=== PATIENT | female | born 1940 | race Caucasian/White ===

== ENCOUNTER 2022-09-12 09:21 | Outpatient (CLI) | payer MEDICARE, SELFPAY ==
--- NOTE | 2022-09-12 09:45 | CRLHL7_ITS ---
For Patients: As a result of the Cures Act, medical imaging exams and procedure reports are released immediately into your electronic medical record. You may view this report before your referring provider. If you have questions, please contact your health care provider. DIGITAL DIAGNOSTIC LEFT MAMMOGRAM USING TOMOSYNTHESIS AND COMPUTER-AIDED DETECTION LEFT BREAST ULTRASOUND CLINICAL HISTORY: LEFT breast mass/asymmetry. COMPARISON: 09/06/2022. TECHNIQUE: Digital LEFT mammogram in three projections. Tomosynthesis and CAD utilized. Real-time ultrasound imaging of LEFT breast with imaging documentation. BREAST COMPOSITION: There are areas of scattered fibroglandular density. FINDINGS: 3D spot compression MLO, 3D true lateral and 3D XCCL LEFT breast mammogram images submitted. There is a spiculated mass within the LEFT breast posterior depth, upper outer quadrant 6 cm from the nipple adjacent to vascular calcifications. This mass is difficult to visualize due to its posterior position on routine CC images. Targeted LEFT breast ultrasound performed at 2 o`clock 6 cm from the nipple. In this location there is a solid hypoechoic taller than wide mass measuring 1.3 x 1.5 x 1.0 cm. IMPRESSION: Suspicious mass LEFT breast 2 o`clock 6 cm from the nipple measuring 1.5 cm. RECOMMENDATIONS: Ultrasound-guided core needle biopsy. Results and recommendations discussed with the patient. BI-RADS Category 4: Suspicious A lay language report of this examination will be provided to the patient. Dictated by Kwame Cheng MD @ 09/12/2022 11:08:10 AM /Dictated by: Kwame Cheng MD @ 09/12/2022 11:08:00 AM (Electronically Signed)
--- NOTE | 2022-09-12 10:15 | CRLHL7_ITS ---
For Patients: As a result of the Cures Act, medical imaging exams and procedure reports are released immediately into your electronic medical record. You may view this report before your referring provider. If you have questions, please contact your health care provider. PLEASE SEE DIGITAL DIAGNOSTIC LEFT MAMMOGRAM PERFORMED SAME DAY CRL:jovanna nugent/Dictated by: Kwame Cheng MD @ 09/12/2022 11:08:00 AM (Electronically Signed)
--- NOTE | 2022-11-28 13:47 | ONC.NURNOTE ---
Spoke with Mayra with Dr. Scott Alcazar, [facility] regarding surgery planning. Pt ok'd to have breast surgery 1) at least 10 days from today and 2) when ANC >0.5. Dr. Alcazar anticipates a quick rebound of blood counts and is happy to speak directly with Dr. Flores. Msg sent to Dr. Flores with office contact info: [phone], option #2. Labs drawn 11/21/22 WBC 1.1, ANC 0.07. Pt scheduled for BM BX 11/29 and Heme Onc f/u 12/04. 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 Pt will need to continue care at [facility] for the time being; they will notify us when pt able to follow care locally.
== END 2022-09-12 09:22 | disposition home or self-care (01) ==
LOC: MAMMO 09:22
PROVIDERS: PCP Family Medicine; Visit Provider Family Medicine
DX: N63.20 Unspecified lump in the left breast, unspecified quadrant (principal); R92.8 Other abnormal and inconclusive findings on diagnostic imaging of breast
CPT/HCPCS: 76642; 77065; G0279

== ENCOUNTER 2022-09-19 07:59 | Outpatient (CLI) | payer MEDICARE, SELFPAY ==
--- NOTE | 2022-09-19 08:15 | CRLHL7_ITS ---
For Patients: As a result of the Century Cures Act, medical imaging exams and procedure reports are released immediately into your electronic medical record. You may view this report before your referring provider. If you have questions, please contact your health care provider. ULTRASOUND-GUIDED LEFT BIOPSY WITH CLIP PLACEMENT INDICATION: 82-year-old female. LEFT upper outer quadrant breast mass. Biopsy for diagnostic purposes. Informed consent was obtained. Benefits and risks were discussed. The patient agreed to proceed. [place] protocol was followed. TIME-OUT conducted just prior to starting procedure confirmed patient identity, site/side, procedure, patient position, and availability of correct equipment. Pause for cause was performed. Utilizing sterile technique and 1 percent lidocaine for local anesthetic, a 14-gauge biopsy gun was advanced into the loop small lesion at the 2 o`clock position 6 cm from the LEFT nipple. Six passes were obtained. A small clip was placed. No immediate complications. A postprocedure mammogram is pending. IMPRESSION: Technically successful ultrasound-guided LEFT breast biopsy. No immediate complications. 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 The pathology report is concordant with the imaging findings. Dictated by Hammad Verdin MD @ Sep 19 2022 9:20AM Signed by:?Hammad Verdin MD @09/19/2022 11:16:55 AM (Electronically Signed)
--- NOTE | 2022-09-19 09:00 | CRLHL7_ITS ---
For Patients: As a result of the Century Cures Act, medical imaging exams and procedure reports are released immediately into your electronic medical record. You may view this report before your referring provider. If you have questions, please contact your health care provider. POST-BIOPSY LEFT MAMMOGRAM FOR CLIP PLACEMENT INDICATION: 82-year-old female. Status post LEFT ultrasound-guided breast biopsy. Clip placement. Follow-up. TECHNIQUE: Lateral LEFT breast mammogram performed utilizing exaggerated CC view laterally, a conventional CC view, and a true ML view. FINDINGS: Breast Composition: There are areas of scattered fibroglandular density. Within the upper outer LEFT breast at the 2 o`clock position is a small mass with a biopsy clip perfectly position. Vascular calcifications in the LEFT breast. A few benign punctate calcifications. IMPRESSION: Post mammogram clip placement. Adequate placement of the clip. ACR not applicable Dictated by: Hammad Verdin MD @09/19/2022 9:17:33 AM jj/Dictated by: Hammad Verdin MD @ 09/19/2022 9:17:00 AM (Electronically Signed)
== END 2022-09-19 08:00 | disposition home or self-care (01) ==
LOC: US 07:59
PROVIDERS: PCP Family Medicine; Visit Provider Family Medicine
DX: N63.20 Unspecified lump in the left breast, unspecified quadrant (principal); R92.8 Other abnormal and inconclusive findings on diagnostic imaging of breast
CPT/HCPCS: 19083; 77065; 88305; 88360; 88361; A4648; A4649

== ENCOUNTER 2022-10-06 10:43 | Emergency (ER) | payer MEDICARE, SELFPAY ==
[2022-10-06 10:58] VITALS: BP 175/78; PULSE 76; RESP 16; TEMP 36.8; O2SAT 98; BMI 30.7
--- NOTE | 2022-10-06 11:12 | CRLHL7_ITS ---
For Patients: As a result of the Century Cures Act, medical imaging exams and procedure reports are released immediately into your electronic medical record. You may view this report before your referring provider. If you have questions, please contact your health care provider. INDICATION: Pain and swelling both lower extremities TECHNIQUE: A compression venous ultrasound exam was performed of both lower extremities using umanzor scale imaging, color Doppler and spectral Doppler analysis. FINDINGS: Sonographic imaging of the lower extremities demonstrates normal compressibility and color Doppler venous blood flow within the common femoral, deep femoral, and proximal greater saphenous veins. Within the thighs the femoral veins are patent and compressible. At a lower level the popliteal and posterior tibial veins also show normal compressibility and color Doppler venous blood flow. IMPRESSION: Normal venous ultrasound exam. No evidence of deep vein thrombosis within either the left or right lower extremity. Dictated by Ashish Garcia MD @ 10/06/2022 1:55:50 PM (Electronically Signed)
--- NOTE | 2022-10-06 11:13 | ED_ITS ---
HPI - General Adult General Chief complaint: Extremity Pain/Injury, Lower Stated complaint: right leg possible clot Time Seen by Provider: 10/06/22 11:03 History of Present Illness HPI narrative: This 82-year-old female was called by urgent care because of an elevated D- dimer. The D-dimer it done at urgent care returned at 2300 with a reference range for normal at 100-500. The patient states that she has had some swelling and redness in this leg for the past couple weeks. She went to an urgent care toward the beginning of these symptoms and received a prescription for a steroid and a diagnosis of reactions from bug bites. She did not have any improvement of her symptoms and went to urgent care last night again. She was diagnosed with a cellulitis and has started Keflex. D-dimer results came back after she left and she was called this morning and instructed to come in here for further evaluation. She does not report any chest pain or shortness of breath. 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 She is taking a full-strength aspirin daily. She does have a new diagnosis of breast cancer. Related Data Home Medications Medication Instructions Recorded Confirmed aspirin 325 mg tablet 325 mg PO BID 10/05/22 10/05/22 Previous Rx's Medication Instructions Recorded cephalexin 500 mg tablet 500 mg PO TID 7 days #21 tabs 10/05/22 Allergies Allergy/AdvReac Type Severity Reaction Status Date / Time No Known Drug Allergies Allergy Verified 10/05/22 18:20 Review of Systems Status of ROS: Reports: 10 or more systems reviewed and unremarkable except as noted in History and below Narrative: Constitutional: Well-developed, well-nourished, no acute distress. HEENT: Normocephalic, atraumatic. Neck: Normal range of motion. Nontender. Supple. Heart: Regular. No murmurs. Normal rate. Intact distal pulses. Lungs: Clear to auscultation. No chest discomfort. No wheezes, rhonchi, or rales. Abdomen: Normal bowel sounds. Nontender. No rebound tenderness. Genitalia: Deferred. Back: No midline tenderness. Normal range of motion. Extremities: Normal range of motion. Skin: Intact. No rash. Warm. No erythema or pallor. Neurologic: No altered sensation. No weakness. Alert and oriented. Psychiatric: No suicidality. No anxiety or depression. No insomnia. Nursing notes and vitals signs are reviewed. [facility] Medical History (Updated 10/06/22 @ 15:[address] MD) Cellulitis of lower leg ?L03.119 - Cellulitis of unspecified part of limb (ICD-10) CVA (cerebral vascular accident) ?I63.9 - Cerebral infarction, unspecified (ICD-10) Allergic reaction ?T78.40XA - Allergy, unspecified, initial encounter (ICD-10) Surgical History (Updated 09/26/22 @ 12:45 by Fela Flores MD) S/P carotid endarterectomy ?Z98.890 - Other specified postprocedural states (ICD-10) Family History (Updated 09/26/22 @ 12:45 by Fela Flores MD) Other Ovarian cancer Social History (Updated 09/26/22 @ 12:46 by Fela Flores MD) Narrative: She does not smoke or drink alcohol. She lives independently. Smoking Status: Never smoker Exam Narrative: Exam Narrative: Constitutional: Well-developed, well-nourished, no acute distress. HEENT: Normocephalic, atraumatic. Neck: Normal range of motion. Nontender. Supple. Heart: Regular. No murmurs. Normal rate. Intact distal pulses. Lungs: Clear to auscultation. No chest discomfort. No wheezes, rhonchi, or rales. Abdomen: Normal bowel sounds. Nontender. No rebound tenderness. Genitalia: Deferred. Back: No midline tenderness. Normal range of motion. Extremities: Normal range of motion. No injury. Right leg has erythema and swelling on the anterior aspect involving the distal portion of the lower extremity from the ankle about care home to the knee. She does not report any pain in her calf or upper leg. Skin: Intact. No rash. Warm. No erythema or pallor. Neurologic: No altered sensation. No weakness. Alert and oriented. Psychiatric: No suicidality. No anxiety or depression. No insomnia. Nursing notes and vitals signs are reviewed. Const: Vital Signs, click to edit/add: Vital Signs - 24 hr 10/06/22 10:58 10/06/22 13:15 10/06/22 15:23 Temperature 98.3 F Pulse Rate [Pulse Oximeter] 76 67 70 Respiratory Rate 16 Blood Pressure [Ri ght Upper Arm] 175/78 H 166/84 H 176/82 H Pulse Oximetry 98 96 96 Oxygen Delivery Me thod Room Air Room Air Room Air Course Vital Signs Vital signs: Initial Vital Signs Temperature 98.3 F 10/06/22 10:58 Temperature Source Temporal Artery Scan 10/06/22 10:58 Pulse Rate 76 10/06/22 10:58 Respiratory Rate 16 10/06/22 10:58 Blood Pressure 175/78 H 10/06/22 10:58 Blood Pressure Mean 110 H 10/06/22 10:58 Blood Pressure Position Sitting 10/06/22 10:58 Pulse Oximetry 98 10/06/22 10:58 Oxygen Delivery Method Room Air 10/06/22 10:58 Vital Signs Temperature 98.3 F 10/06/22 10:58 Pulse Rate 76 10/06/22 10:58 Respiratory Rate 16 10/06/22 10:58 Blood Pressure 175/78 H 10/06/22 10:58 Pulse Oximetry 98 10/06/22 10:58 Oxygen Delivery Method Room Air 10/06/22 10:58 Temperature 98.3 F 10/06/22 10:58 Pulse Rate 70 10/06/22 15:23 Respiratory Rate 16 10/06/22 10:58 Blood Pressure 176/82 H 10/06/22 15:23 Pulse Oximetry 96 10/06/22 15:23 Oxygen Delivery Method Room Air 10/06/22 15:23 Medical Decision Making MDM Narrative Medical decision making narrative: This patient comes in with swelling in her right lower extremity and a lab results from urgent care last night showed elevated D-dimer. An IV was established here and labs are drawn again which returned with D-dimer at 2.1. Ultrasound of the lower extremities show no sign of deep venous thrombosis bilaterally. The patient's PERC rule however does not rule out pulmonary embolism. Her age, previous stroke history, and recent diagnosis of breast cancer puts her at risk for an embolic event. The patient then had a CT scan of her chest with IV contrast. There is no evidence of pulmonary embolism. The patient is okay to return home and encouraged to continue her antibiotic treatment as prescribed. She is taking a full strength aspirin and will continue this also. Lab Data Labs: Lab Results 10/06/22 Range/Units 11:30 WBC 2.77 L (4.50-11.00) K/uL RBC 3.81 L (4.00-5.20) m/uL Hgb 12.2 (12.0-16.0) gm/dL Hct 37.5 (33.0-51.0) % MCV 98 (80-100) fL MCH 32 (26-34) pg MCHC 33 (32-36) gm/dL RDW Coeff of Demond 14.9 (11.5-15.5) % Plt Count 154 (140-440) K/uL Neut % (Auto) 11.1 L (42.0-72.0) % Lymph % (Auto) 48.4 H (20-44) % Morgan % (Auto) 39.7 H (0.0-11.0) % Eos % (Auto) 0.4 (0.0-7.0) % Baso % (Auto) 0.4 (0.0-3.0) % Neut # (Auto) 0.30 L (1.7-7.0) K/uL Lymph # (Auto) 1.30 (0.90-2.90) K/uL Morgan # (Auto) 1.10 H (0.00-0.90) K/UL Eos # (Auto) 0.00 (0.00-0.50) K/uL Baso # (Auto) 0.00 (0.00-0.30) K/uL Abs Immat Gran (auto) 0.00 (0.00-0.30) K/uL Imm/Tot Granulo (auto) 0.0 % D-Dimer Quant (PE/DVT) 2.14 H (0.00-0.50) ug/ml Sodium 139 (135-149) mmol/L Potassium 3.6 (3.6-5.1) mmol/L Chloride 104 (96-114) mmol/L Carbon Dioxide 29 (20-32) mmol/L BUN 10 (7-30) mg/dL Creatinine 0.8 (0.5-1.5) mg/dL Estimated Creat Clear 41.30 Estimated GFR 74 ml/min Glucose 93 (60-115) mg/dL Calcium 8.4 (8.4-10.6) mg/dL Imaging Data Venous US: Radiologist's impression: Normal venous ultrasound exam. No evidence of deep vein thrombosis within either the left or right lower extremity. CT scan - chest: Radiologist's impression: 1. No acute pulmonary embolism to the level of the subsegmental pulmonary arteries. 2. No acute pathology in the chest. 3. Coronary vessel calcifications. 4. Partially visualized cholelithiasis. Discharge Plan Discharge Clinical Impression: Cellulitis, D-dimer, elevated Patient Disposition: Home, Self-Care Condition: Stable Additional Instructions: Continue antibiotic as prescribed. Follow up with MD or return if worsening symptoms happen. Prescriptions: No Action aspirin 325 mg tablet 325 mg PO BID cephalexin 500 mg tablet 500 mg PO TID 7 Days Qty: 21 0RF Follow Up/Referrals: Jeffrey Dempsey MD [Primary Care Provider] - Stand Alone Forms: [employer] Info Instructions
[2022-10-06 11:47] LABS: Basophils Percent Auto 0.4 % (0.0-3.0); Eosinophils Percent Auto 0.4 % (0.0-7.0); Hematocrit 37.5 % (33.0-51.0); Hemoglobin* 12.2 gm/dL (12.0-16.0); Lymphocytes Percent Auto 48.4 % (20-44); Mean Corpuscular HGB Conc 33 gm/dL (32-36); Mean Corpuscular Hemoglobin 32 pg (26-34); Mean Corpuscular Volume 98 fL (80-100); Monocytes Percent Auto 39.7 % (0.0-11.0); Neutrophils Percent Auto 11.1 % (42.0-72.0); Platelet Count* 154 K/uL (140-440); RDW Coefficient of Variation % 14.9 % (11.5-15.5); Red Blood Count 3.81 m/uL (4.00-5.20); White Blood Count* 2.77 K/uL (4.50-11.00)
[2022-10-06 11:57] LABS: Slide Review Reflex No
[2022-10-06 11:59] LABS: Chloride* 104 mmol/L (96-114); Potassium* 3.6 mmol/L (3.6-5.1); Sodium* 139 mmol/L (135-149)
[2022-10-06 12:02] LABS: Blood Urea Nitrogen* 10 mg/dL (7-30); Calcium* 8.4 mg/dL (8.4-10.6); Carbon Dioxide* 29 mmol/L (20-32); Creatinine* 0.8 mg/dL (0.5-1.5); Estimated Glomerular Filt Rate 74 ml/min; Glucose* 93 mg/dL (60-115)
[2022-10-06 12:05] LABS: D Dimer Quantitative* 2.14 ug/ml (0.00-0.50)
[2022-10-06 13:15] VITALS: BP 166/84; PULSE 67; O2SAT 96
--- NOTE | 2022-10-06 14:04 | CRLHL7_ITS ---
For Patients: As a result of the Century Cures Act, medical imaging exams and procedure reports are released immediately into your electronic medical record. You may view this report before your referring provider. If you have questions, please contact your health care provider. Indication: Elevated D-dimer Comparison: None available. Technique: The following the uncomplicated administration of 95 mL Isovue 370. This study was performed with IV administration of iodinated contrast material, which was deemed necessary given the patient`s indication for the examination. Findings: Vascular Findings: -enhancement of the pulmonary artery is adequate. No acute pulmonary embolism to the level of the subsegmental pulmonary arteries. - no thoracic aortic dissection or aneurysm. The ascending and descending aorta measures 3.9 and 2.6 cm, respectively, at the level of the main pulmonary artery, and 2.3 cm at the diaphragmatic hiatus. There are mild aortic atherosclerotic calcifications. - Normal three-vessel takeoff from a normal appearing aortic arch. Caliber of the main pulmonary artery is normal. Non-Vascular Findings: Thyroid: Normal thyroid. Mediastinum: Normal esophagus. Patent central airways. Lymph nodes: No paratracheal, mediastinal, hilar or axillary adenopathy. Lungs: No suspicious pulmonary nodules or consolidation. Pleura: No pleural effusion or pneumothorax. Heart: Normal heart size. No pericardial effusion. Mitral valve annular calcifications. Coronary vessel calcifications. Chest Wall: Upper Abdomen: Limited images of the upper abdomen demonstrate no acute findings. Partially visualized cholelithiasis. Calcification of the abdominal aorta and splenic artery. Bones: No acute fractures. No aggressive appearing lytic or blastic osseous lesions. Mild multilevel degenerative changes of the spine. Impression: 1. No acute pulmonary embolism to the level of the subsegmental pulmonary arteries. 2. No acute pathology in the chest. 3. Coronary vessel calcifications. 4. Partially visualized cholelithiasis. Please note that all CT scans at this facility use dose modulation, iterative reconstruction, and/or weight-based dosing when appropriate to reduce radiation dose to as low as reasonably achievable. Dictated by Hugo Foreman MD @ 10/06/2022 3:36:10 PM (Electronically Signed)
[2022-10-06 15:23] VITALS: BP 176/82; PULSE 70; O2SAT 96
== END 2022-10-06 15:55 | disposition home or self-care (01) ==
PROVIDERS: Emergency Provider Emergency Medicine Emergency Medical Services; PCP Family Medicine
DX: L03.115 Cellulitis of right lower limb (principal); R79.89 Other specified abnormal findings of blood chemistry
CPT/HCPCS: 36415; 71260; 80048; 85025; 85379; 93970; 99284; Q9967

== ENCOUNTER 2022-10-08 16:55 | Outpatient (CLI) | payer MEDICARE, SELFPAY ==
[2022-10-08 22:40] LABS: Reticulocyte Hemoglobin Equivi 33.7 pg (29.0-35.0); Reticulocyte Percent 1.1 % (0.5-2.0); Reticulocytes Absolute 0.04 # (0.03-0.08)
== END 2022-10-08 16:56 | disposition home or self-care (01) ==
PROVIDERS: PCP Family Medicine; Visit Provider Physician Assistant Medical
DX: R22.41 Localized swelling, mass and lump, right lower limb (principal); L03.119 Cellulitis of unspecified part of limb
CPT/HCPCS: 80076; 85045; 86617; 88184; 88185

== ENCOUNTER 2022-10-16 11:19 | Outpatient (CLI) | payer MEDICARE, SELFPAY ==
[2022-10-16 11:40] VITALS: BP 133/73; PULSE 62; RESP 16; O2SAT 99; BMI 28.7
--- NOTE | 2022-10-16 11:47 | W.ANESCHARGE ---
Anesthesia Charges Start Date/Time Anesthesia Start Date: 10/16/22 Anesthesia Start Time: 12:18 Stop Date/Time Anesthesia Stop Date: 10/16/22 Anesthesia Stop Time: 12:51 Summary Extremes of Age - Over 70 or under 1: MDA
[2022-10-16 12:13] LABS: Basophils Percent Auto 0.4 % (0.0-3.0); Hematocrit 41.4 % (33.0-51.0); Hemoglobin* 13.7 gm/dL (12.0-16.0); Immature Granulocytes Pct Auto 2.1 %; Immature Reticulocyte Fraction 21.6 % (3.0-15.9); Lymphocytes Percent Auto 59.6 % (20-44); Mean Corpuscular HGB Conc 33 gm/dL (32-36); Mean Corpuscular Hemoglobin 33 pg (26-34); Mean Corpuscular Volume 99 fL (80-100); Monocytes Percent Auto 32.6 % (0.0-11.0); Neutrophils Percent Auto 5.3 % (42.0-72.0); Platelet Count* 180 K/uL (140-440); RDW Coefficient of Variation % 15.5 % (11.5-15.5); Red Blood Count 4.19 m/uL (4.00-5.20); Reticulocyte Hemoglobin Equivi 38.8 pg (29.0-35.0); Reticulocyte Percent 1.1 % (0.5-2.0); Reticulocytes Absolute 0.05 # (0.03-0.08); White Blood Count* 2.85 K/uL (4.50-11.00)
[2022-10-16 12:50] VITALS: BP 95/45; PULSE 52; RESP 16; O2SAT 100
--- NOTE | 2022-10-16 12:55 | W.ANESCHARGE ---
Anesthesia Charges Start Date/Time Anesthesia Start Date: 10/16/22 Anesthesia Start Time: 12:18 Stop Date/Time Anesthesia Stop Date: 10/16/22 Anesthesia Stop Time: 12:51
[2022-10-16 13:02] VITALS: BP 129/86; PULSE 70; RESP 16; O2SAT 96
[2022-10-16 13:10] VITALS: BP 126/53; PULSE 53; RESP 16; O2SAT 95
[2022-10-16 14:04] LABS: Slide Review Reflex Yes
[2022-10-16 14:05] LABS: Slide Review Acceptable Review (Acceptable)
== END 2022-10-16 13:39 | disposition home or self-care (01) ==
LOC: OP CLINIC 11:20
PROVIDERS: PCP Family Medicine; Visit Provider Internal Medicine Hematology & Oncology
DX: D70.9 Neutropenia, unspecified (principal)
CPT/HCPCS: 1112; 36415; 38222; 81245; 81246; 81310; 81450; 85025; 85045; 88184; 88185; 88237; 88264; 88305; 88311; 88313; 88360; 99100; J1644; J2001; J2704

== ENCOUNTER 2023-02-11 09:54 | Outpatient (CLI) | payer MEDICARE, SELFPAY ==
--- NOTE | 2023-02-11 10:15 | CRLHL7_ITS ---
For Patients: As a result of the Century Cures Act, medical imaging exams and procedure reports are released immediately into your electronic medical record. You may view this report before your referring provider. If you have questions, please contact your health care provider. LEFT BREAST ULTRASOUND CLINICAL HISTORY: Follow-up LEFT breast mass, known breast cancer. COMPARISON: 09/12/2022. TECHNIQUE: Real-time ultrasound imaging of LEFT breast with imaging documentation. FINDINGS: Previously biopsied mass again noted upper outer quadrant LEFT breast, 2 o`clock 6 cm from the nipple. This measures 1.9 x 1.2 x 2.1 cm, previously measuring 1.5 cm. Biopsy clip noted within the mass. IMPRESSION: Mild increased size of the previously biopsy mass LEFT breast 2 o`clock 6 cm from the nipple now measuring 2.1 cm compared to 1.5 cm. RECOMMENDATIONS: Clinical follow-up. Results and recommendations were discussed with the patient at the time of the exam. BI-RADS Category 6: Known Biopsy-Proven Malignancy A lay language report of this examination will be provided to the patient. Dictated by Kwame Cheng MD @ 02/11/2023 12:45:55 PM aftab/Dictated by: Kwame Cheng MD @ 02/11/2023 12:45:00 PM (Electronically Signed)
== END 2023-02-11 09:55 | disposition home or self-care (01) ==
LOC: US 09:55
PROVIDERS: PCP Family Medicine; Visit Provider Internal Medicine
DX: C50.412 Malignant neoplasm of upper-outer quadrant of left female breast (principal)
CPT/HCPCS: 76642

== ENCOUNTER 2023-03-21 09:55 | Day surgery (SDC) | payer MEDICARE, SELFPAY ==
[2023-03-21 10:20] VITALS: BMI 28.8
[2023-03-21] MEDS: LACTATED RINGERS 1000 ML 1,000 ML 100 ML IV (10:30)
[2023-03-21] MEDS: SODIUM CHLORIDE 0.9 % (FLUSH) 10 ML SYRINGE IVF (10:30)
[2023-03-21 10:38] VITALS: BP 154/64; PULSE 61; RESP 20; TEMP 36.6; O2SAT 95
--- NOTE | 2023-03-21 11:00 | CRLHL7_ITS ---
For Patients: As a result of the Cures Act, medical imaging exams and procedure reports are released immediately into your electronic medical record. You may view this report before your referring provider. If you have questions, please contact your health care provider. LEFT BREAST SPECIMEN RADIOGRAPH, 03/21/2023 CLINICAL HISTORY: LEFT breast cancer. COMPARISON: 09/12/2022, 03/21/2023 FINDINGS: Two views of the specimen LEFT breast submitted. The specimen contains the biopsy clip, the biopsied mass and the localization wire. IMPRESSION: Specimen contains the biopsied mass, biopsy clip and localization wire. ACR not applicable. Dictated by Kwame Cheng MD @ 03/26/2023 9:00:59 AM/CRL:marium PT/Dictated by: Kwame Cheng MD @ 03/26/2023 9:01:00 AM (Electronically Signed)
--- NOTE | 2023-03-21 11:15 | CRLHL7_ITS ---
For Patients: As a result of the Century Cures Act, medical imaging exams and procedure reports are released immediately into your electronic medical record. You may view this report before your referring provider. If you have questions, please contact your health care provider. LEFT BREAST WIRE LOCALIZATION USING ULTRASOUND GUIDANCE, 03/21/2023 CLINICAL HISTORY: Malignant neoplasm of unspecified site. Pre-surgery planning. COMPARISON: Ultrasound 02/11/2023. LATERALITY: LEFT. LESION: LEFT breast 2 o???clock, 6 cm from the nipple, mass measuring 1.9 x 1.2 x 2.2 cm. TECHNIQUE: The localization wire was placed using real-time ultrasound guidance with image documentation. Cranial-caudal and medial-lateral digital mammograms were obtained after localization wire placement. CONSENT and TIME OUT: The procedure, risks, and alternatives were explained to the patient and a consent was signed. [place] Protocol was followed including pre-procedure verification that relevant information/documentation was available, reviewed and properly matched to the patient; consent accurate and complete; and equipment and supplies available. Time Out was conducted just prior to starting procedure to verify the four required elements: patient identity, correct side/site marked (if applicable), procedure, relevant images/results properly labeled and displayed (if applicable). PROCEDURE: The skin was prepped with Betadine or ChloraPrep and 10 cc of 1% lidocaine was injected for local anesthesia. The localization wire was placed within or near the targeted breast lesion using ultrasound guidance. The patient tolerated the procedure well. PROXIMITY OF WIRE TO LESION: A wire is placed through the mass and is adjacent to the clip. IMPRESSION: Successful breast wire localization. ACR not applicable Lyn Mari M.D. Diagnostic/Breast Radiologist [email or web address] Transcribed: 1:51 pm DW/Dictated by: Lyn Mari MD @ 03/21/2023 1:46:00 PM (Electronically Signed)
[2023-03-21] MEDS: CEFAZOLIN 1 GM inj IVP (11:50)
--- NOTE | 2023-03-21 12:00 | CRLHL7_ITS ---
For Patients: As a result of the Century Cures Act, medical imaging exams and procedure reports are released immediately into your electronic medical record. You may view this report before your referring provider. If you have questions, please contact your health care provider. PLEASE SEE LEFT BREAST WIRE LOCALIZATION OF SAME DAY. CRL:marium PT/Dictated by: Kwame Cheng MD @ 03/26/2023 9:00:00 AM (Electronically Signed)
--- NOTE | 2023-03-21 12:41 | W.ANESCHARGE ---
Anesthesia Charges Start Date/Time Anesthesia Start Date: 03/21/23 Anesthesia Start Time: 11:43 Stop Date/Time Anesthesia Stop Date: 03/21/23 Anesthesia Stop Time: 13:30 Summary Extremes of Age - Over 70 or under 1: MDA
[2023-03-21] MEDS: BUPIVACAINE 0.25% 30 ML INJECTION (12:45)
[2023-03-21] MEDS: LIDOCAINE 1% MDV 20 ML INJECTION (12:45)
--- NOTE | 2023-03-21 13:27 | W.ANESCHARGE ---
Anesthesia Charges Start Date/Time Anesthesia Start Date: 03/21/23 Anesthesia Start Time: 11:43 Stop Date/Time Anesthesia Stop Date: 03/21/23 Anesthesia Stop Time: 13:30
[2023-03-21 13:30] VITALS: BP 166/79; PULSE 49; RESP 20; TEMP 36.1; O2SAT 98
[2023-03-21 13:45] VITALS: BP 149/74; PULSE 50; RESP 20; O2SAT 98
--- NOTE | 2023-03-21 13:55 | PM.GSPRC ---
Operative Note Date of procedure: 03/21/23 Pre-op diagnosis: Left breast invasive ductal carcinoma, ERPR positive, HER2 negative Post-op diagnosis: Same Type of Procedure: Left breast lumpectomy with preoperative wire localization Indications: She underwent annual mammogram which showed a mass in the left breast. Biopsy showed this to be an invasive ductal carcinoma, ERPR positive, HER2 negative. Shortly after diagnosis she developed cellulitis and her laboratory values were abnormal. 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 She was admitted emergently for chemotherapy. Several discussions were had about whether not surgery for her breast cancer would be beneficial to her, and initially we had scheduled her for surgery, however it was felt that because of her prognosis from AML, that treatment with antiestrogen therapy with surveillance of the mass would be sufficient. Unfortunately on surveillance ultrasound the mass had become slightly larger. Because of this, and the fact that her AML was stable, her oncologist recommended proceeding with lumpectomy. It was felt that lymph node biopsy would not change her treatment course or overall prognosis and so this was deferred. Procedure Description: After discussing the risks and benefits of the procedure, the patient signed informed consent.? The operative site was marked and the patient was brought to the operating room and placed on the operating table in supine position.? Care was taken to pad the patient's pressure points.?? The patient was then given sedation by anesthesia.?? The operative site was then prepped and draped in the usual sterile fashion.? A time-out was then performed. An incision was made in the left breast in the upper outer quadrant directly over the approximate area of the tumor. Dissection was taken down into the subcutaneous tissue and the wire which was adjacent to the incision was grasped and pulled into view. Dissection was taken down with cautery to the chest wall below the incision around the wire. The mass was palpable. This was removed and inked for margins. Specimen x-ray showed the wire and clip within the specimen. The pathologist reviewed the specimen grossly. The tumor was close at the inferior margin as well as anterior margin. This was at the lateral aspect of the specimen. Therefore, I elected to excise a wider margin. Starting just deep to the skin, I used cautery to divide the subcutaneous fat, taking a margin of the lumpectomy cavity anteriorly as well as inferiorly until the posterior aspect was reached. This was again done at the lateral aspect of the wound cavity, where the tumor was sitting. This was inked and sent to pathology for permanent section. Of note, the new anterior and inferior margins were inked, however black ink was used for the inferior margin. The specimen was labeled as such, the pathologist was notified, and additionally a stitch was placed on the inferior margin. Anteriorly the dissection just below the incision did reach the dermal plane in approximately a 1 cm area. However it was felt to be viable. Hemostasis was achieved with cautery. Rika was placed in the wound after placing clips marking the lumpectomy cavity. The wound was then closed in layers with 3-0 Vicryl dermal and 4-0 Monocryl running subcuticular suture. Sterile dressings were then applied. ? The patient was then woken and transported to the recovery area in stable condition. ? The patient tolerated the procedure well. Findings: Left lumpectomy with wire and clip noted in the specimen on x-ray. Anterior and inferior margins were close. These were reexcised. Anesthesia: MAC Surgeon: Fela Flores MD Estimated blood loss (mL): 5 Additional Specimen Information: 1. Left lumpectomy 2. Left lumpectomy re-excision of lateral anterior and inferior margin (the inferior margin was accidentally inked black. This was discussed with the pathologist and also denoted with a stitch.) Condition: stable Disposition: same day
[2023-03-21 14:02] VITALS: BP 161/67; PULSE 49; RESP 20; O2SAT 99
[2023-03-21 14:16] VITALS: BP 171/84; PULSE 50; RESP 20; TEMP 36.5; O2SAT 97
[2023-03-21 14:46] VITALS: BP 170/80; PULSE 55; RESP 20; O2SAT 97
== END 2023-03-21 14:55 | disposition home or self-care (01) ==
PROVIDERS: PCP Family Medicine; Visit Provider Surgery
PROC: (CPT 19301; principal; 2023-03-21 11:00)
PROC: (CPT 19301; 2023-03-21 11:00)
DX: C50.412 Malignant neoplasm of upper-outer quadrant of left female breast (principal); Z17.0 Estrogen receptor positive status [ER+]; C92.00 Acute myeloblastic leukemia, 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 remission
CPT/HCPCS: 19301; 00400; 19285; 77065; 88305; 88307; 99100; C1769; J0665; J0690; J2704; J3010; J3490; J7120

== ENCOUNTER 2023-04-17 13:38 | Outpatient (CLI) | payer MEDICARE, SELFPAY ==
--- OUTSIDE RECORDS SUMMARY | 2023-04-17 13:58 | XMS_ITS | Referral Summary ---
Author Name Unknown Organization [facility] Address [address] [place] [address] Care Team Providers Care Liquor Commissioner Name Role Phone Elsewhere, Pcp Primary Care Provider Unavailabl e Source Comments Patient records contain information from all sites at [facility]. For routine questions regarding patient records, call [phone] during business hours, M-F 8:00 AM - 5:00 PM Central Time. Record requests for emergency care only can be directed to [phone] at any time.[facility] Encounters Date Type Department Care Team Description 04/15/2023 Specialty Pharmacy [facility] [id number] [place] [phone] Ness Briggs, Pharm.D., R.Ph. 04/15/2023 Specialty Pharmacy [facility] [id number] [place] [phone] Ness Briggs, Pharm.D., R.Ph. from Last 3 Months Allergies No known active allergies Medications Medication Sig Dispensed Refills Start Date End Date Status famotidine (PEPCID) 20 mg tablet Take 20 mg by mouth as needed for heartburn. 0 Active acyclovir (ZOVIRAX) 400 mg tablet Take 1 tablet (400 mg total) by mouth 2 (two) times a day. 60 tablet 0 10/23/2022 Active calcium carbonate-vitamin D3 500 mg-3.125 mcg (125 unit) per tablet Take 1 tablet by mouth daily. 0 Active fluconazole (Diflucan) 200 mg tablet Take 2 tablets (400 mg total) by mouth daily. 60 tablet 0 11/22/2022 Active levoFLOXacin (LEVAQUIN) 500 mg tabletIndications:Pr ophylaxis, medical Take 1 tablet (500 mg total) by mouth daily Indications: Prophylaxis, medical. 30 tablet 0 11/23/2022 Active melatonin 5 mg tablet Take 1 tablet (5 mg total) by mouth at bedtime as needed (sleep). 0 11/22/2022 Active ylwglgeeuzom-ikyq-HW -Ca-minerals (THERAPEUTIC-M) 400 mcg (folic acid) per tablet Take 1 tablet by mouth daily. 0 11/23/2022 Active polyethylene glycol (MIRALAX) 17 gram powder packet Take 1 packet (17 g total) by mouth daily. Dissolve each 17 g dose in 240 mLs (8 ounces) of beverage. 0 11/23/2022 Active prochlorperazine (COMPAZINE) 10 mg tablet Take 1 tablet (10 mg total) by mouth every 6 (six) hours as needed for nausea or vomiting. 30 tablet 0 11/22/2022 Active sennosides-docusate sodium (SENOKOT-S) 8.6-50 mg per tablet Take 1 tablet by mouth 2 (two) times a day as needed for constipation. 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 Carotid Artery Disease 06/22/2015 Resolved Problems Problem Noted Date Diagnosed Date Resolved Date Bradycardia Sinus 11/04/2022 11/04/2022 Arrhythmia Sinus 11/04/2022 11/08/2022 Beat Premature Ventricular 11/04/2022 0 11/04/2022 Overflow Incontinence Urinary 11/04/2022 11/07/2022 Nausea 11/02/2022 11/22/2022 Cellulitis 10/31/2022 11/09/2022 Prolonged QT Interval 10/31/20222022 Abnormal Coagulation Profile 10/31/2022 11/09/2022 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 No 11/29/2022 Within the last year, have y ou been humiliated or emotionally abused in other ways by your partner or ex-partner? No Within the last year, have y ou been kicked, hit, slapped, or otherwise physically hurt by your partner or ex-partner? No 11/29/2022 Within the last year, have y ou been raped or forced to have any kind of sexual activity by your partner or ex-partner? No 11/29/2022 Overall Financial Resource Strain (CARDIA) Answe r Date Recorded How hard is it for you to pa y for the very basics like food, housing, medical care, and heating? Not hard at all 11/29/2022 Exercise Vital Sign Answer Date Recorde d On average, how many days pe r week do you engage in moderate to strenuous exercise (like a brisk walk)? 3 days 11/29/2022 On average, how many minutes do you engage in exercise at this level? 10 min 11/29/2022 Hunger Vital Sign Answer Date Recorded Within the past 12 months, y ou worried that your food would run out before you got the money to buy more. Never true 11/30/19 23 Within the past 12 months, t he food you bought just didn't last and you didn't have money to get more. Never true 11/29/2022 PRAPARE - Transportation Answer Date Re corded In the past 12 months, has l ack of transportation kept you from medical appointments or from getting medications? No 11/01 In the past 12 months, has l ack of transportation kept you from meetings, work, or from getting things needed for daily living? No 11/29/2022 Nutrition Answer Date Recorded Nutrition: EVOO Fat Source Unknown 11/29 On average, how many serving s of fruits and vegetables do you eat per day (serving size is equal to 1 cup or approximately the size of a tennis ball)? 3-5 11/29/2022 Dental Answer Date Recorded Dental: Regular Dentist Yes 11/30/19 Employment Answer Date Recorded Employment status Retired 11/29/2022 Housing Stability Answer Date Recorded What is your living situation today? I have a [facility] place to live 11/29/2022 Sex and Gender Information Value Date Recorded Sex Assigned at Not on file Gender Identity Not on file Sexual Orientation Not on file Last Filed Vital Signs Vital Sign Reading Time Taken Comments Blood Pressure 149/59 11/29/2022 12:19 PM CDT Pulse 81 11/29/2022 12:19 PM CDT Temperature 36.5 ??C (97.7 ??F) 11/29/2022 12:19 PM C DT Respiratory Rate 18 11/29/2022 12:19 PM CDT Oxygen Saturation 99% 11/29/2022 11:10 AM CDT Inhaled Oxygen Concentration - - Weight 75.5 kg (166 lb 7.2 oz) 11/22/2022 8:00 A M CDT Height 166.5 cm (5' 5.55) 11/14/2022 10:42 AM C DT Body Mass Index 27.23 11/14/2022 10:42 AM CDT Plan of Treatment Not on file Medical Devices Implanted Type Area Cut Off Machine Operator Device Identifier Shelf Expiration Date Model / Serial / Lot Conversions - Default Historical Implant Device Implanted:11/29 (Quantity not on file) Misc Other Mouth Description:Body Location - Mouth. upper right tooth implant. Device Status Text - MiscOther. Conversions - Default Historical Implant Device Implanted:11/29 (Quantity not on file) Ocular Lens Left: Eye Description:Body Location - Eye L. Eye R. Device Status Text - OculrLens. 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
--- OUTSIDE RECORDS SUMMARY | 2023-04-17 13:58 | XMS_ITS | Encounter Summary ---
Author Name Unknown Organization [facility] Address [address] [place] [address] Care Team Providers Care Sugar Mill Worker Name Role Phone Elsewhere, Pcp Primary Care Provider Unavailabl e Encounter Details Date Type Department Care Team (Late st Contact Info) Description 04/15/2023 Specialty Pharmacy [facility] [address] [place] [address] Ness Briggs, Pharm.D., R.Ph. [address] [place] [phone] Social History Tobacco Use Types Packs/Day Years Used Date Smoking Tobacco: Never Smokeless Tobacco: Never Alcohol Use Standard Drinks/Week Comments Not Currently [...] money to buy more. Never true 11/30/19 Within the past 12 months, t he [...] your living situation today? I have a [facility] place to live 11/29/2022 Sex and Gender Information Value Date Recorded Sex Assigned at Not on file Gender Identity Not on file Sexual Orientation Not on file documented as of this encounter Miscellaneous Notes * Telephone Encounter - Ness Briggs, Pharm.D., R.Ph. - 04/15/2023 2:28 PM CST As part of accreditation with [facility] and [facility] and an ongoing commitment to quality, [facility] ([facility]) attempts to assess the medication therapy of patients using [facility] services on anannual or biannual basis. At this time, [facility] is unable to reassess this patient by patient reported outcomes. The patient wassent a [facility] Medication Adherence Questionnaire via the online patient portal.? They have not responded in greater than 30 days.? The patient continues to fill with [facility] based on the pharmacy dispensing record. The questionnaire series remains available to the patient to complete, if desired, at a future time. Sent patient a portal message to let us know if she needs a refill. Dose may have changed or been held. Ness Briggs, Pharm.Prieto., R.Ph. ITUAL CARE COORDINATOR documented in this encounter Plan of Treatment Not on file documented as of this encounter Visit Diagnoses Not on filedocumented in this encounter Additional Health Concerns Infection Onset Date Last Indicated Resolved Time Protective Environment 10/24/2022 10/24/2022 documented as of this encounter Care Teams Sugar Mill Worker Relationship Specialty Start Date End Date Elsewhere, Pcp PCP - General Internal Medicine 10/19/22 documented as of this encounter
--- OUTSIDE RECORDS SUMMARY | 2023-04-17 13:58 | XMS_ITS ---
Author Name Unknown Organization [facility] Address [address] [place] [address] Care Team Providers Care Sole Rounding Machine Operator Name Role Phone Unavailable Unavailable Unavailable Surgery Details Not on file Complications Check Surgery Details section. Procedure Estimated Blood Loss Check Surgery Details section. Procedure Findings Check Surgery Details section. Procedure Specimens Taken Check Surgery Details section.
--- OUTSIDE RECORDS SUMMARY | 2023-04-17 13:58 | XMS_ITS | Clinical Summary ---
Author Name Unknown Organization [facility] Address [address] [place] [address] Care Team Providers Care Historic Site Administrator Name Role Phone Elsewhere, Pcp Primary Care Provider Unavailabl e Source Comments Patient records contain information from all sites at [facility]. For routine questions regarding patient records, call [phone] during business hours, M-F 8:00 AM - 5:00 PM Central Time. Record requests for emergency care only can be directed to [phone] at any time.[facility] Allergies No known active allergies Medications Medication [...] bedtime as needed (sleep). 0 11/22/2022 Active xnrlfgugeroo-cyye-SZ -Ca-minerals (THERAPEUTIC-M) 400 mcg (folic acid) per [...] Profile 10/31/2022 11/09/2022 Infarction Cerebral 11/04/2014 11/01/19 23 Encounters Date Type Department Care Team Description 04/15/2023 Specialty Pharmacy [facility] [address] [place] [phone] Ness Briggs, Pharm.D., R.Ph. 04/15/2023 Specialty Pharmacy [facility] [address] [place] [phone] Ness Briggs, Pharm.D., R.Ph. from Last 3 Months Social History Tobacco Use Types Packs/Day Years [...] your living situation today? I have a [facility] place to live 11/29/2022 Sex and Gender [...] 11/14/2022 10:42 AM CDT Plan of Treatment Health Maintenance Due Date Last Done Comments Pneumococcal vaccine (65+ years) (1 of 2 - PCV) 1946 COVID-19 Vaccine (2022- season) 2022 08/25/2021, 02/21/2021, 06/17/2020, Additional history exists Influenza Vaccine (#1) 2022 Office Visit for Blood Pressure Check / Re-check 02/28/2023 11/29/2022 Depression Screening (Annual PHQ-2) 04/01/2023 Fall Risk Screen (Annual) 04/01/2023 DTaP,Tdap,and Td Vaccines (2 - Td or Tdap) 07/30/2026 07/30/2016 Zoster Vaccines Completed 03/01/2022, 11/09/2021 HPV Vaccines Aged Out No longer eligi ble based on patient's age to complete this topic Medical Devices Implanted Type Area Concrete Mixing Truck Driver Device Identifier Shelf Expiration Date Model / [...] Onset Date Last Indicated Protective Environment 10/24/2022 3 Advance Directives For more information, please contact: [phone] Documents on File Type Date Recorded Patient Software Writer Expl anation Advance Directives 11/06/2022 7:57 AM Precious Loyd HCP OA/ADVOCATE/AGENT/REPRE SENTATIVE/SURROGATE Latest Code Status on File Code Status Date Activated Date Inactivated Comments Full Code 10/29/2022 8:52 PM 11/22/2022 7:50 PM Question Answer Comments Full Code: Discussed Healthcare Agents on File Name Relationship Healthcare Agent Relationship Communication Precious Loyd Daughter Health Care Agent Care Teams Historic Site Administrator Relationship Specialty Start Date End Date Elsewhere, Pcp PCP - General Internal Medicine 10/19/22
--- OUTSIDE RECORDS SUMMARY | 2023-04-17 13:58 | XMS_ITS ---
Author Name Unknown Organization [facility] Address [address] [place] [address] Care Team Providers Care Endoscopy Support Specialist Name Role Phone Elsewhere, Pcp Primary Care Provider Unavailabl e Active Problems Problem Noted Date Diagnosed Date Debility 11/13/2022 Pancytopenia Chemotherapy Induced 10/31/2022 Gastroesophageal Reflux Disease Without Esophagi tis 10/31/2022 Malignant Neoplasm Of Breast Female Left 023 Leukemia Cutis Not Having Achieved Remission 05/2022 Lightheadedness 10/31/2022 Acute Myeloblastic Leukemia Not Having Achieved Remission 10/24/2022 Transient Ischemic Attack Pe rsonal History Or Stroke Personal History 08/12/2015 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 Venetoclax / Decitabine* Plan Start Date:10/23/2022 Plan Provider:Elina Hunt MPAS, P.A.-C. Linked Problems Acute Myeloblastic Leukemia Not Having Achieved Remission (HCC) Treatment Medications Current Day (Day 1 , Cycle 2 - Planned for 11/27/2022) Next Day (Day 2, Cycle 2 - Planned for 11/28/2022) decitabine (DACOGEN)decitabine (DACOGEN) IVPB in 250 mL (DACOGEN)venetoclax (VENCLEXTA) decitabine 40 mg in NaCl 0.9% 258 mL IVPB (DACOGEN)venetoclax (VENCLEXTA) 100 mg tablet decitabine 40 mg in NaCl 0.9% 258 mL IVPB (DACOGEN) Past Plans No past plan information found. Radiation Treatments * No radiation treatments are documented for this patient in [facility]. Treatments may have been administered in another system. 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
--- OUTSIDE RECORDS SUMMARY | 2023-04-17 13:58 | XMS_ITS | Encounter Summary ---
Author Name Unknown Organization [facility] Address [address] [place] [address] Care Team Providers Care Biomedical Specialist Name Role Phone Elsewhere, Pcp Primary Care Provider Unavailabl e Encounter Details Date Type Department Care Team (Late st Contact Info) Description 04/15/2023 Specialty Pharmacy [facility] [address] [place] [address] Ness Briggs, Pharm.D., R.Ph. [address] [place] [phone] Social History Tobacco Use Types Packs/Day Years [...] your living situation today? I have a [facility] place to live 11/29/2022 Sex and Gender Information Value Date Recorded Sex Assigned at Not on file Gender Identity Not on file Sexual Orientation Not on file documented as of this encounter Miscellaneous Notes * Telephone Encounter - Ness Briggs, Pharm.D., R.Ph. - 04/15/2023 3:51 PM CST [facility] Specialty Pharmacy service discontinued at this time. Patient using other pharmacy. DING CONSTRUCTION INSPECTOR documented in this encounter Plan of Treatment Not on file documented as of this encounter Visit Diagnoses Not on filedocumented in this encounter Additional Health Concerns Infection Onset Date Last Indicated Resolved Time Protective Environment 10/24/2022 10/24/2022 documented as of this encounter Care Teams Biomedical Specialist Relationship Specialty Start Date End Date Elsewhere, Pcp PCP - General Internal Medicine 10/19/22 documented as of this encounter
--- OUTSIDE RECORDS SUMMARY | 2023-04-17 13:59 | XMS_ITS | Encounter Summary ---
Author Name Unknown Organization [facility] Address [address] [place] [address] Care Team Providers Care Lay Out Technician Name Role Phone Elsewhere, Pcp Primary Care Provider Unavailabl e Reason for Visit * Outpatient (Routine) - Closed Specialty Diagnoses / Procedures Referred By Diamond t Referred To Contact Hematology Oncology Scott Alcazar M.D. [address] [place] [phone] [facility] Referral ID Status Reason Start Date Expiration Date Visits Re quested Visits Authorized [id number] Closed 12/11/2022 12/10/2025 1 1 Encounter Details Date Type Department Care Team (Latest Contact Info) Description 01/08/2023 1:00 PM CDT Virtual Visit Division of Hematology in [place], [place] [address] [place] [address] Scott Alcazar M.D. 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 I have a [facility] place to live 11/29/2022 Sex and Gender Information Value Date Recorded Sex Assigned at Not on file Gender Identity Not on file Sexual Orientation Not on file documented as of this encounter Progress Notes * Scott Alcazar M.D. - 01/08/2023 1:00 PM CDT This visit was requested by the patient due to AML. I spent a total of 14 minutes with the patient. Referring Provider Dr Villa Oncology [phone] Dr Romero breast cancer surgeon CHIEF COMPLAINT/REASON FOR VISIT AML HISTORY OF PRESENT ILLNESS In 09/2022 she had right leg cellulitis (treated with Keflex, cefdinir). 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 Skin biopsy was consistent with acute myeloid leukemia involvement. She was treated with decitabine plus venetoclax on October 30, 2022. She did have prolonged QT interval, generalized weakness and some nausea. Holter monitor was negative. Repeat bone marrow biopsy on November 29 showed no evidence of leukemia with negative MRD AML flow. IDH2 PCR was positive at 16%. She was diagnosed with breast cancer (ER/WV+; HER 2- ) limited stage. Spoke today with the patient over the phone. A decision has been made to observe her breast cancer and not proceed with the surgery at this time. He therefore proceeded with cycle 2 of decitabine +14days of venetoclax 100 mg on December 24. CBC on that day showed a white count 5 hemoglobin 11.3 platelets 374. 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 The goal is to depend the response and delay slots stop the relapse. Please note that patients with IDH2 mutation can have very deep response for example shehas negative MRD flow. The regimen needs to be adjusted every cycle to avoid severe neutropenia andthrombocytopenia. Pending on how she does the cycle she may need to get less venetoclax (7 days) and less decitabine 3 days. She will continue her care under doctor Dr. Villa locally. Several questions were answered Plan: Treatment: Decitabine plus venetoclax Goals: Remission Labs: Per local doctor Transfusion: Per local doctor Return: Phone visit in 2 months Education We discussed the diagnosis and treatment plan in detail. The patient expressed understanding of thecontent. No apparent learning barriers were identified; learning preferences include listening. Signed by: Scott Alcazar M.D. 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
--- OUTSIDE RECORDS SUMMARY | 2023-04-17 13:59 | XMS_ITS | Encounter Summary ---
Author Name Unknown Organization [facility] Address [address] [place] [id number] Care Team Providers Care Agriculture Professor Name Role Phone Elsewhere, Pcp Primary Care Provider Unavailabl e Reason for Visit * Reason Onset Date Comments Return Visit 12/07/2022 Encounter Details Date Type Department Care Team (Late st Contact Info) Description 12/07/2022 Clinical Communication Division of Hematology in [place], [place] [address] [place] [address] Scott Alcazar M.D. [address] [place] [phone] Return Visit Social History Tobacco Use Types Packs/Day Years [...] your living situation today? I have a [facility] place to live 11/29/2022 Sex and Gender Information Value Date Recorded Sex Assigned at Not on file Gender Identity Not on file Sexual Orientation Not on file documented as of this encounter Plan of Treatment Not on file documented as of this encounter Visit Diagnoses Not on filedocumented in this encounter Additional Health Concerns Infection Onset Date Last Indicated Resolved Time Protective Environment 10/24/2022 10/24/2022 documented as of this encounter Care Teams Agriculture Professor Relationship Specialty Start Date End Date Elsewhere, Pcp PCP - General Internal Medicine 10/19/22 documented as of this encounter
--- OUTSIDE RECORDS SUMMARY | 2023-04-17 13:59 | XMS_ITS | Encounter Summary ---
Author Name Unknown Organization [facility] Address [address] [place] [address] Care Team Providers Care Erecting Crane Operator Name Role Phone Elsewhere, Pcp Primary Care Provider Unavailabl e Reason for Visit * Outpatient (Routine) - Closed Specialty Diagnoses / Procedures Referred By Diamond t Referred To Contact Diagnoses Acute Myeloblastic Leukemia Not Having Achieved Remission (HCC) Procedures Perform central line tender: Site care Catherine Bro APRN, C.N.P., D.N.P. [address] [place] [phone] [facility] Referral ID Status Reason Start Date Expiration Date Visits Re quested Visits Authorized [id number] Closed 11/22/2022 11/22/2023 1 1 Encounter Details Date Type Department Care Team (Late st Contact Info) Description 11/29/2022 12:00 PM CDT Infusion Department of Infusion Therapy in [place], [place] [address] [place] [phone] Catherine Bro APRN, C.N.P., D.N.P. 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 I have a [facility] place to live 11/29/2022 Sex and Gender Information Value Date Recorded Sex Assigned at Not on file Gender Identity Not on file Sexual Orientation Not on file documented as of this encounter Last Filed Vital Signs Vital Sign Reading Time Taken Comments Blood Pressure 149/59 11/29/2022 12:19 PM CDT Pulse 81 11/29/2022 12:19 PM CDT Temperature 36.5 ??C (97.7 ??F) 11/29/2022 12:19 PM C DT Respiratory Rate 18 11/29/2022 12:19 PM CDT Oxygen Saturation - - Inhaled Oxygen Concentration - - Weight - - Height - - Body Mass Index - - documented in this encounter Plan of Treatment Not on file documented as of this encounter Visit Diagnoses Diagnosis 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 Flush every 7 days to each lumen. Given 11/29/2022 12:40 PM CDT 20 mL documented in this encounter Additional Health Concerns Infection Onset Date Last Indicated Resolved Time Protective Environment 10/24/2022 10/24/2022 documented as of this encounter Care Teams Erecting Crane Operator Relationship Specialty Start Date End Date Elsewhere, Pcp PCP - General Internal Medicine 10/19/22 documented as of this encounter
--- OUTSIDE RECORDS SUMMARY | 2023-04-17 13:59 | XMS_ITS | Encounter Summary ---
Author Name Unknown Organization [facility] Address [address] [place] [address] Care Team Providers Care Floor Grinder Name Role Phone Elsewhere, Pcp Primary Care Provider Unavailabl e Reason for Visit * Reason Onset Date Comments Question for Dr. Yesy Sanchez 11/27/2022 Encounter Details Date Type Department Care Team (Latest Contact Info) Description 11/27/2022 Clinical Communication Division of Hematology in [place], [place] [address] [place] [phone] Scott Alcazar M.D. [address] [place] [phone] Yesy Sanchez Social History Tobacco Use Types Packs/Day Years [...] your living situation today? I have a [facility] place to live 11/29/2022 Sex and Gender Information Value Date Recorded Sex Assigned at Not on file Gender Identity Not on file Sexual Orientation Not on file documented as of this encounter Miscellaneous Notes * Telephone Encounter - Mayra Shafer R.N. - 11/28/2022 3:46 PM CDT Shima returns call from [facility]. She will update her provider that Dr. Yesy Sanchez said that he suspects that in 10 days Mónica could have breast cancer surgery. He would like to see ANC> 0.5. He is happy to talk to the surgeon. I have her the [facility] for her provider to return call. * Telephone Encounter - Mayra Shafer R.N. - 11/28/2022 10:34 AM CDT Left message to return my call - Mayra [phone] documented in this encounter Plan of Treatment Not on file documented as of this encounter Visit Diagnoses Not on filedocumented in this encounter Additional Health Concerns Infection Onset Date Last Indicated Resolved Time Protective Environment 10/24/2022 10/24/2022 documented as of this encounter Care Teams Floor Grinder Relationship Specialty Start Date End Date Elsewhere, Pcp PCP - General Internal Medicine 10/19/22 documented as of this encounter
--- OUTSIDE RECORDS SUMMARY | 2023-04-17 13:59 | XMS_ITS | Encounter Summary ---
Author Name Unknown Organization [facility] Address [address] [place] [address] Care Team Providers Care Machine Rug Cleaner Name Role Phone Elsewhere, Pcp Primary Care Provider Unavailabl e Encounter Details Date Type Department Care Team ([facility] st Contact Info) Description 11/22/2022 Clinical Communication Department of Oncology in [place], [place] [address] [place] [address] Natty Howe M.D. [address] [place] [address] Social History Tobacco Use Types Packs/Day Years Used Date Smoking Tobacco: Never Smokeless Tobacco: Never Alcohol Use Standard Drinks/Week Comments Not Currently 0 (1 standard drink = 0.6 oz pur e alcohol) Nutrition Answer Date Recorded Nutrition: EVOO Fat Source Unknown 05/22 Nutrition: Servings of Fruits/Vegetables per Day Not on file 2020 Dental Answer Date Recorded Dental: Regular Dentist Unknown 05/22/19 Sex and Gender Information Value Date Recorded [...] documented as of this encounter Care Teams Machine Rug Cleaner Relationship Specialty Start Date End Date Elsewhere, Pcp PCP - General Internal Medicine 10/19/22 documented as of this encounter
--- OUTSIDE RECORDS SUMMARY | 2023-04-17 13:59 | XMS_ITS | Encounter Summary ---
Author Name Unknown Organization [facility] Address [address] [place] [address] Care Team Providers Care Application Chemist Name Role Phone Elsewhere, Pcp Primary Care Provider Unavailabl e Encounter Details Date Type Department Care Team (Late st Contact Info) Description 11/29/2022 10:17 AM CDT Anesthesia Event Outpatient Procedure Center in [place], [place] [address] [place] [address] Leta Julian, ASSISTANT STORE MANAGER TRAINEE, METAL MOULDER [address] [place] [address] Anesthesia Record Procedure Summary Procedure Name Responsible Anesthesiologist Anesthesia Start Time Anesthesia Stop Time BIOPSY BONE MARROW Leta Julian, Richard PRN, METAL MOULDER 11/29/22 1017 11/29/22 1034 Events Date Time Event Comment 11/29/2022 1017 An Start Machine/Equipme nt Checked Infection Precautions Followed Procedure/Site Verified NPO Status Verified Supine Standard ASA Monitors Applied 1018 Turnover to Proceduralist 1023 Anesthesia Time Out 1024 Proc Start 1028 Proc Fin 1028 Turnover to ANE Staff 1028 an stop data 1034 An End I completed my handoff to the receiving staff during which we 1. Identified the patient 2. Identified the responsible provider 3. Reviewed the pertinent medical history 4. Discussed the surgical course 5. Reviewed intra-op anesthesia management and issues during anesthesia 6. Set expectations for post-procedure period 7. Allowed opportunity for questions and acknowledgement of understanding. Meds Name Total fentaNYL PF injection 50 mcg/mL 25 mcg lidocaine 2% (mg) injection 60 mg propofol 10 mg/mL injection 70 mg Lactated Ringer's 100 mL * Agents No agents on file. * Blood No blood administrations on file. Lines, Drains, and Airways Type Details Placement Removal PICC Double Lumen Placement Date: 10/01 04/23; Placement Time: 1807 (created via procedure documentation); Cath Out Checklist Completed: Yes; Size: 4 Fr; Description: StatSeal Disc applied to PICC insertion site due to evidence of bleeding/oozing. Disc is to remain in place for seven days to form seal at the insertion site. Disturbing the StatSeal Disc prior to this may cause rebleeding. The StatSeal Disc will cause brown discoloration of the skin at the PICC insertion site. When the disc is removed, care should be taken to minimize seal disruption. The remaining seal will continue to fall off with normal healing. Please assess, clean, and dress the PICC site per institutional guidelines. Visit [email or web address] for more information. ; Length: 40 cm; Orientation: Right; Location: Basilic; Site Prep: Chlorhexidine (Preferred); Local Anesth: Intradermal lidocaine; Initial Extremity Circumference: 32.5 cm; Initial Exposed Catheter: 0 cm; Inserted By: brd; Insertion Attempts: 1; Placement Verification: Ultrasound 10/29/221807 by Zara Reyez, R.N. Wound 11/29/22; 1030; N; I ncision; Iliac crest; Right, Posterior; BMBX Site 11/29/22 1030 by Kanika Trujillo R.N. documented in this encounter Social History Tobacco Use Types Packs/Day Years [...] your living situation today? I have a [facility] place to live 11/29/2022 Sex and Gender Information Value Date Recorded Sex Assigned at Not on file Gender Identity Not on file Sexual Orientation Not on file documented as of this encounter OR Notes * Anesthesia Postprocedure Evaluation - Leta Julian APRN, LORNA - 11/29/2022 10:34 AM CDT Patient: Mónica Man Procedure Summary Date: 11/29/22 Room / Location: Outpatient Procedure Center in [place], [place] Anesthesia Start: 1017 Anesthesia Stop: 1034 Procedure: BIOPSY BONE MARROW Diagnosis: Acute Myeloblastic Leukemia Not Having Achieved Remission (HCC) Scheduled Providers: Leta Julian APRN, CRNA Responsible Provider: Leta Julian APRN, CRNA Anesthesia Type: MAC ASA Status: 3 Anesthesia Type: MAC Last vitals Vitals Value Taken Time BP 99/68 11/29/22 1032 Temp 36.7 ??C 11/29/22 1006 Pulse 72 11/29/22 1034 Resp 17 11/29/22 1034 SpO2 100 % 11/29/22 1034 Vitals shown include unvalidated device data. Please reference Vitals flowsheet for most recent vital signs. Anesthesia Post Evaluation Patient Disposition: dismissal Cardiovascular status: hemodynamics (HR & BP) acceptable Respiratory status: patent airway with spontaneous effort Temperature: normothermic Oxygen requirements: room air Level of consciousness: awake Pain score: pain adequately controlled and/or at baseline Post Op nausea/vomiting: none Hydration status: euvolemic * Anesthesia Preprocedure Evaluation - Amber Rebolledo M.D. 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 Present illness and pre-op diagnosis were confirmed. The planned surgery / procedure was verified with the patient / legal guardian. The patient's general health condition remains unchanged RELEVANT COMORBID CONDITIONS NEURO (+) Anomaly Cerebrovascular Congenital (HCC) (+) Carotid Artery Disease (+) Transient Ischemic Attack Personal History Or Stroke Personal History GI (+) Gastroesophageal Reflux Disease Without Esophagitis HEME (+) Pancytopenia Chemotherapy Induced (HCC) ONC (+) Malignant Neoplasm Of Breast Female Left (HCC) OBJECTIVE PHYSICAL EXAMINATION Airway (HEENT) Mallampati: II TM Distance: <3 FB Neck ROM: Full Mouth Opening: >3 cm Upper Lip Bite Test Class: I Facies (pediatrics): normal Cardiovascular Rhythm: Regular Rate: Normal Cardiovascular Assessment: cardiovascular normal Functional Capacity: >4 METS Pulmonary Pulmonary Assessment: Clear General / Constitutional Constitutional Assessment: Normal General State of Health:: healthy appearing and calm Neurological Neurologic Assessment: alert ASSESSMENT / PLAN ANESTHESIA PLAN ASA: 3 Anesthesia Plan: MAC Patient seen and allergies reviewed, anesthesia plan and risks discussed directly with patient /legal guardian or through an translator/interpreter. The use of blood products not discussed Approval to Proceed: approved for anesthesia documented in this encounter Plan of Treatment Not on file documented as of this encounter Visit Diagnoses Not on filedocumented in this encounter Administered Medications Inactive Administered Medications - up to 3 most recent administrations Medication Order MAR Action Action Date Dose Rate Site fentaNYL injection (SUBLIMAZE) intravenous, As needed, Starting on Henny 11/29/22 at 1021, Anesthesia Intra-op Given 11/29/2022 10:21 AM CDT 25 mcg Lactated Ringer's 20 mL/hr, intravenous, Continuous, Starting on Henny 11/29/22 at 1030, Pre-Op Restarted 11/29/2022 10:18 AM CDT Rate/Dose Verify 11/29/2022 10:17 AM CDT 20 mL/ hr New Bag 11/29/2022 10:15 AM CDT 20 mL/hr 20 mL/hr lidocaine (PF) (cardiac) injection intravenous, As needed, Starting on Henny 11/29/22 at 1021, Anesthesia Intra-op Given 11/29/2022 10:21 AM CDT 60 mg propofoL injection (DIPRIVAN) intravenous, As needed, Starting on Henny 11/29/22 at 1021, Anesthesia Intra-op Given 11/29/2022 10:22 AM CDT 20 mg Given 11/29/2022 10:21 AM CDT 50 mg documented in this encounter Additional Health Concerns Infection Onset Date Last Indicated Resolved Time Protective Environment 10/24/2022 10/24/2022 documented as of this encounter Care Teams Application Chemist Relationship Specialty Start Date End Date Elsewhere, Pcp PCP - General Internal Medicine 10/19/22 documented as of this encounter
--- OUTSIDE RECORDS SUMMARY | 2023-04-17 13:59 | XMS_ITS | Encounter Summary ---
Author Name Unknown Organization [facility] Address [address] [place] [address] Care Team Providers Care Laser Set Up Operator Name Role Phone Elsewhere, Pcp Primary Care Provider Unavailabl e Reason for Referral * Outpatient (Routine) - Closed Specialty Diagnoses / Procedures Referred By Diamond delacruz Referred To Contact Hematology Oncology Scott Alcazar M.D. [address] [place] [address] [facility] Referral ID Status Reason Start Date Expiration Date Visits Re quested Visits Authorized [id number] Closed 12/11/2022 12/10/2025 1 1 Reason for Visit * Outpatient (Routine) - Closed Specialty Diagnoses / Procedures Referred By Diamond delacruz Referred To Contact Hematology Oncology Scott Alcazar M.D. [address] [place] [address] [facility] Referral ID Status Reason Start Date Expiration Date Visits Re quested Visits Authorized [id number] Closed 12/04/2022 12/03/2025 1 1 Encounter Details Date Type Department Care Team (Latest Contact Info) Description 12/11/2022 4:15 PM CDT Virtual Visit Division of Hematology in [place], [place] [address] [place] [phone] Scott Alcazar M.D. 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 I have a [facility] place to live 11/29/2022 Sex and Gender Information Value Date Recorded Sex Assigned at Not on file Gender Identity Not on file Sexual Orientation Not on file documented as of this encounter Progress Notes * Scott Alcazar M.D. - 12/11/2022 4:15 PM CDT This visit was requested by the patient due to AML. I mentioned to the patient that there may be a charge for this visit. The patient consented to continue. I spent a total of 8 minutes with the patient. Referring Provider Dr [facility] [phone] Dr Romero breast cancer surgeon CHIEF COMPLAINT/REASON FOR VISIT AML HISTORY OF PRESENT ILLNESS In 09/2022 she had right leg cellulitis (treated with Keflex, cefdinir). 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 She was treated with d ecitabine plus venetoclax on October 30, 2022. Her cellulitis improved gradually, ultrasound was negative for deep vein thrombosis. She did have prolonged QT interval, generalized weakness and some nausea. Holter monitor was negative. Repeat bone marrow biopsy on November 29 showed no evidence of leukemia with negative MRD AML flow. IDH2 PCR was positive at 16%. She was diagnosed with breast cancer (ER/AZ+; HER 2- ) limited stage. Spoke today with the patient over the phone. Continues to be doing well. She is planned to have herbreast cancer removal surgery on December 13 Her most recent CBC showed a white count of 3, absolute neutrophil count of 1000, hemoglobin 9.9 platelets of 288. 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 In summary she is achieved remission evidenced by bone marrow and AML flow MRD; overall I think kait have persistent potentially chronic myeloid disorder evidence by the positive IDH2 mutation byPCR. She is now going to get her breast cancer surgery done and will have few weeks to recover and then resume her acute leukemia therapy. I would recommend that she continues on decitabine 5 days and canconsider dropping her venetoclax from 4 weeks to 14-21 days minimize cytopenia. Will be great to have a repeat IDH2 PCR in few months from now. I do not think a repeat bone marrow biopsy is needed atthis time I will schedule a follow-up phone visit in 3-4 weeks for updated plan. Plan: Treatment: Hold treatment for 2-3 weeks Goals: Remission Labs: per local doctor Transfusion: na Return: Phone visit in 3-4 weeks Education We discussed the diagnosis and treatment plan in detail. The patient expressed understanding of thecontent. No apparent learning barriers were identified; learning preferences include listening. Signed by: Scott Alcazar M.D. 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
--- OUTSIDE RECORDS SUMMARY | 2023-04-17 13:59 | XMS_ITS | Encounter Summary ---
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 [address] [place] [address] [facility] Referral ID Status Reason Start Date Expiration Date Visits Re quested Visits Authorized [id number] Closed 11/22/2022 11/22/2023 1 1 Encounter Details Date Type Department Care Team (Latest Contact Info) Description 11/29/2022 9:28 AM CDT - 11/29/2022 11:59 PM CDT Hospital Encounter Outpatient Procedure Center in [place], [place] [address] [place] [phone] Natty Howe M.D. 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 I have a [facility] place to live 11/29/2022 Sex and Gender Information Value Date Recorded Sex Assigned at Not on file Gender Identity Not on file Sexual Orientation Not on file documented as of this encounter Last Filed Vital Signs Vital Sign Reading Time Taken Comments Blood Pressure 117/63 11/29/2022 11:00 AM CDT Pulse 63 11/29/2022 11:10 AM CDT Temperature 36.7 ??C (98.1 ??F) 11/29/2022 10:06 AM C DT Respiratory Rate 17 11/29/2022 11:10 AM CDT Oxygen Saturation 99% 11/29/2022 11:10 AM CDT Inhaled Oxygen Concentration - - Weight - - Height - - Body Mass Index - - documented in this encounter Discharge Instructions * Discharge Instructions* Elaine Ventura, R.N. - 11/29/2022 10:05 AM CDT Contact Information If you have immediate or urgent concerns, please call [phone] between the hours of 7 am and 11pm. If you have concerns outside of these hours, call the [facility] Air Traffic Control Manager at [phone] and ask to speak to the Census Taker on-call. documented in this encounter Medications at Time of Discharge Medication Sig Dispensed Refills Start Date End Date calcium carbonate-vitamin D3 500 mg-3.125 mcg (125 unit) per tablet Take 1 tablet by mouth daily. 0 famotidine (PEPCID) 20 mg tablet Take 20 mg by mouth as needed for heartburn. 0 fluconazole (Diflucan) 200 mg tablet Take 2 tablets (400 mg total) by mouth daily. 60 tablet 0 11/22/2022 levoFLOXacin (LEVAQUIN) 500 mg tabletIndications:Pro phylaxis, medical Take 1 tablet (500 mg total) by mouth daily Indications: Prophylaxis, medical. 30 tablet 0 11/23/2022 melatonin 5 mg tablet Take 1 tablet (5 mg total) by mouth at bedtime as needed (sleep). 0 11/22/2022 bvmvhovyzgti-thif-HA- Ca-minerals (THERAPEUTIC-M) 400 mcg (folic acid) per tablet Take 1 tablet by mouth daily. 0 11/23/2022 polyethylene glycol (MIRALAX) 17 gram powder packet Take 1 packet (17 g total) by mouth daily. Dissolve each 17 g dose in 240 mLs (8 ounces) of beverage. 0 11/23/2022 prochlorperazine (COMPAZINE) 10 mg tablet Take 1 tablet (10 mg total) by mouth every 6 (six) hours as needed for nausea or vomiting. 30 tablet 0 11/22/2022 sennosides-docusate sodium (SENOKOT-S) 8.6-50 mg per tablet Take 1 tablet by mouth 2 (two) times a day as needed for constipation. 100 tablet 0 11/22/2022 venetoclax (VENCLEXTA) 100 mg tabletIndications:Acu te Myeloblastic Leukemia Not Having Achieved Remission (HCC) Take 2 tablets (200 mg total) by mouth daily for 14 days. Take with a meal and water at the same time each day. Swallow whole, do not chew, crush, or break. 28 tablet 0 10/30/2022 12/06/2022 venetoclax (VENCLEXTA) 100 mg tabletIndications:Acu te Myeloblastic Leukemia Not Having Achieved Remission (HCC) Take 2 tablets (200 mg total) by mouth daily for 28 days. Take with a meal and water at the same time each day. Swallow whole, do not chew, crush, or break. 56 tablet 0 11/05/2022 12/03/2022 RX CHEMOTHERAPY PATIENT EDUCATION-OP ONLY RX CHEMOTHERAPY PATIENT EDUCATION 1 each 0 11/01/2022 01/03/2023 RX VENCLEXTA AML PATIENT KIT-OP ONLY VENCLEXTA AML PATIENT KIT 1 each 0 11/01/2022 01/03/2023 RX WELCOME EUWQGO-KDFOORHFJ-AT ONLY Welcome packet 1 each 0 11/01/2022 01/03/2023 documented as of this encounter Procedure Notes * Kanika Trujillo R.N. 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 Authorized by: Scott Alcazar M.D. Care team members present 1. Kanika Trujillo R.N. 2. Otto Jacinto 3. Leta Julian, AGUSTÍN, CREATIVE ASSISTANT PROCEDURE DETAILS Procedure: Bone Marrow biopsy and Bone Marrow aspiration Bone marrow biopsy Laterality: Right Location of biopsy: Posterior iliac crest Patient position: Side lying Intra-procedure monitoring: Blood pressure monitoring, continuous pulse oximetry, heart rate and respirations Type of Needle: Manual bone marrow biopsy needle Findings: Slides obtained, fluid obtained and aspirate obtained with spicules noted Bone marrow aspiration Aspirate volume (mL): 20 CONSENT Consent obtained: written (Risks, benefits and alternatives were discussed and a written Informed Consent was obtained. Please see Informed Consent form for further details.) UNIVERSAL PROTOCOL All relevant documentation and testing were reviewed and available. All required blood products, implants, devices and or special equipment were made available as applicable. Pre-procedure verification was conducted and the correct site was marked if required. A fire risk assessment was done as applicable. The procedural time-out to verify correct patient, correct side/site, and procedure was conducted prior to performing the procedure and confirmed in a procedural pause. PRE-PROCEDURE DETAILS Appropriate hand hygiene, gown, cap, mask, protective eyewear, sterile gloves, skin preparation, sterile drape, and strict aseptic technique were utilized as applicable for the procedure.: yes Site preparation: chlorhexidine SEDATION / ANESTHESIA Anesthesia method: anesthesia and local infiltration Local infiltrate type: lidocaine POST-PROCEDURE DETAILS Procedure completed successfully: yes Procedure tolorated: Well Post procedure pain scale: 0/10 Complications: no apparent complications Post-procedure instructions: Post-procedure activity instructions provided COMMENTS 100 mg 1% Lidocaine IM given Pressure dressing applied [id number] given to patient documented in this encounter Plan of Treatment Not on file documented as of this encounter Procedures Procedure Name Priority Date/Time Associated Diagnosis Comments IDH1 (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 12/04/2022 1:35 PM CDT DTL Specimen Type Bone marrow 12/04/2022 1:35 PM CDT DTL Interpretation These results are considered preliminary and require complete integration with the current pathology case [id number] for final interpretation. ??The result should NOT be interpreted in isolation for the purposes of diagnosis or clinical management. Bone marrow, IDH1 and IDH2 Quantitative detection: Positive. IDH2 R140Q mutation detected, at ??16.8% (mutated/total IDH2). See comment. Comment: IDH1 and IDH2 missense mutations are seen in approximately 5-33% of de mayte acute myeloid leukemia (AML), 7-25% secondary AML, and 4-12% of myelodysplastic syndrome (MDS). IDH mutations in AML are predominantly associated with intermediate-ris k karyotype and their impact on AML prognosis remains controversial (Seymour et al., 2012, [id number]; Dayna et al., 2016, [id number]; Ivette et al., 2014, [id number]). The FDA has approved ivosidenib monotherapy and in combination with azacitidine for the treatment of newly diagnosed IDH1-mutated AML (patients > or = 75 years old or who have comorbidities that preclude the use of intensive induction chemotherapy), and ivosidenib and olutasidenib for relapsed/refract ory AML in adult patients. The FDA has approved enasidenib (AG-221) for the treatment of IDH2-mutated relapsed/refract ory AML in adult patients. 12/04/2022 1:35 PM CDT DTL Comment: ----ADDITIONAL INFORMATION---- Method Summary: Hotspot mutations in IDH1 (R132H, R132S, R132C, R132G, R132P, R132L) and IDH2 (R140W, R140G, R140L, R140Q, R172K, R172M, R172G, R172W, R172S) are evaluated by digital droplet PCR on extracted DNA. The analytical sensitivity of the assay is 0.5% (mutated/total IDH1 or mutated/total IDH2 copies). This test was developed and its performance characteristics determined by [facility] in a manner consistent with CLIA requirements. This test has not been cleared or approved by the U.S. Food and Drug Administration. 11/29/2022 10:2 5 AM CDT 11/30/2022 11:42 AM CDT Scott Alcazar M.D. LAB GENETIC TESTING [facility] [address] [place] [address], [facility] DTL [address] [place] [address] * AML Monitoring, MRD Detection, Bone Marrow (11/29/2022 10:25 AM CDT) AMLMD Result Performed 3 5:04 PM CDT DTL Final Diagnosis These results are considered preliminary and require complete integration with the current pathology case [id number] for final interpretation. ??The result should NOT be interpreted in isolation for the purposes of diagnosis or clinical management. Bone marrow, flow cytometric immunophenotyping: No abnormal myeloid blast population is identified (MRD-negative). Comment: Minimal/measurable residual disease (MRD) analysis is intended to detect small populations of immunophenotypically aberrant myeloid blasts following chemotherapy or bone marrow transplantation for acute myeloid leukemia (AML). ??The sensitivity of this MRD test is 0.01%. ??Consensus guidelines recommend using 0.1% as the threshold to distinguish MRD-positive from MRD-negative patients. ??However, MRD levels below 0.1% may be consistent with residual AML. ??Several studies have shown prognostic significance of MRD levels below 0.1%. ??Correlation with clinical features and other laboratory findings is necessary. ??Contact the signing pathologist at if there are questions about this analysis. Reviewed by: Arsenio Gagnon M.D. 3 5:04 PM CDT DTL Special Studies Results: Blasts: ??AML MRD negative by CD4, CD7, CD13, CD14, CD15, CD16, CD19, CD33, CD34, CD36, CD38, CD45, CD56, CD64, CD71, CD117, CD123, CD371 and HLA-DR expression. Quality assessment: ??Specimen received within validated guidelines. 3 5:04 PM CDT DTL Microscopic Description Consult case. Slide review not performed by flow technologist. 3 5:04 PM CDT DTL Comment: ----ADDITIONAL INFORMATION---- This test was developed and its performance characteristics determined by [facility] in a manner consistent with CLIA requirements. This test has not been cleared or approved by the U.S. Food and Drug Administration. Bone Marrow 11/29/2022 10:2 5 AM CDT 11/30/2022 10:49 AM CDT Scott Alcazar M.D. LAB PATHOLOGY/CYTOLO GY ORDERABLES Performing Organization Address City/State/[facility] Co de Phone Number [facility] [address] [place] [address], [facility] DTL [address] [facility] [address] [place] [address] * Chromosome Analysis, Hematologic Disorders, Bone Marrow (11/29/2022 10:25 AM CDT) Result Summary Normal 12/11/2022 4:51 PM CDT DTL Karyotype 46,XX[20] 12/11/2022 4:51 PM CDT DTL Reason for referral AML 12/11/2022 4:51 PM CDT DTL Specimen Bone Marrow 12/11/2022 4:51 PM CDT DTL Method Culture without mitogens 12/11/2022 4:51 PM CDT DTL Banding Method Band Resolution: <400 Stain Name Cells ? Cells Counted Karyogr ams Prepared ? Analyzed ? GTL ? 20 ? 0 ? 2 ? Total ? 20 ? 0 ? 2 ? Larson to Stain Name: GTL=G-banding; QFQ=Q-banding; DAPI=DAPI-stain ing; CBL=C-banding; AGNOR=Silver-st aining; NON=Non-banded The sum of Cells Analyzed and Cells Counted equals the total cells examined. 12/11/2022 4:51 PM CDT DTL Additional Information A portion of testing was performed at [facility] (CLIA # [id number]). 12/11/2022 4:51 PM CDT DTL Released by Elaine Vázquez D.O. 12/11/2022 4:51 PM CDT DTL Interpretation No clonal abnormality was apparent. This test was ordered in the context of a [facility] pathology consultation/ca se (#[id number]), and this result should be interpreted within the context of the pathology consultation/re port. 12/11/2022 4:51 PM CDT DTL Bone Marrow 11/29/2022 10:2 5 AM CDT 11/30/2022 10:56 AM CDT Scott Alcazar M.D. LAB GENETIC TESTING [facility] [address] [place] [address], [facility] DTL [address] [facility] [address] [place] [address] * OK DX BONE MARROW BX & ASPIR (11/29/2022 10:15 AM CDT) Bone Marrow Narrative MMODAL - 11/29/2022 10:15 AM CDT Kanika Trujillo R.N. ? 11/29/2022 10:29 AM Biopsy Bone Marrow, Sedated Performed by: Kanika Trujillo R.N. Authorized by: Scott Alcazar M.D. ?? Care team members present 1. Kanika Trujillo R.N. 2. Otto Jacinto 3. Leta Julian, INFORMATION SECURITY ARCHITECT, CREATIVE ASSISTANT PROCEDURE DETAILS Procedure: ??Bone Marrow biopsy and Bone Marrow aspiration Bone marrow biopsy Laterality: ??Right Location of biopsy: ??Posterior iliac crest Patient position: ??Side lying Intra-procedure monitoring: ??Blood pressure monitoring, continuous pulse oximetry, heart rate and respirations Type of Needle: ??Manual bone marrow biopsy needle Findings: ??Slides obtained, fluid obtained and aspirate obtained with spicules noted Bone marrow aspiration Aspirate volume (mL): ??20 CONSENT Consent obtained: written (Risks, benefits and alternatives were discussed and a written Informed Consent was obtained. Please see Informed Consent form for further details.) UNIVERSAL PROTOCOL All relevant documentation and testing were reviewed and available. All required blood products, implants, devices and or special equipment were made available as applicable. Pre-procedure verification was conducted and the correct site was marked if required. A fire risk assessment was done as applicable. The procedural time-out to verify correct patient, correct side/site, and procedure was conducted prior to performing the procedure and confirmed in a procedural pause. PRE-PROCEDURE DETAILS Appropriate hand hygiene, gown, cap, mask, protective eyewear, sterile gloves, skin preparation, sterile drape, and strict aseptic technique were utilized as applicable for the procedure.: yes ?? Site preparation: chlorhexidine SEDATION / ANESTHESIA Anesthesia method: anesthesia and local infiltration Local infiltrate type: lidocaine POST-PROCEDURE DETAILS Procedure completed successfully: yes ?? Procedure tolorated: ??Well Post procedure pain scale: ??0/10 Complications: no apparent complications ?? Post-procedure instructions: ??Post-procedure activity instructions provided COMMENTS 100 mg 1% Lidocaine IM given Pressure dressing applied [id number] given to patient Scott Alcazar M.D. PROCEDURE/MINOR SURG ICAL ORDERABLES MMODAL NA * Hematopathology (11/29/2022 6:15 AM CDT) 12/05/2022 8:[address] [facility] Report electronically signed by Arsenio Gagnon M.D. I verify that I have examined all relevant slides/materials for the specimen(s) and rendered or confirmed the diagnosis. 12/05/2022 8:35 AM [facility] Gross Description B: Core biopsy specimens were received in B5 and were subsequently placed in formalin. Received in formalin labeled with the patient's name, medical record number, and bone marrow biopsy is a red-brown bone marrow core, 0.3 cm in average diameter by 1.2 cm in length. ??The specimen is submitted en toto in cassette B1. The specimen was decalcified prior to processing. ??Grossed by JIA. C: Received in formalin labeled with the patient's name, medical record number, and bone marrow clot is a 2.0 x 1.0 x 0.6 cm aggregateof dark red bone marrow clot material. The specimen is submitted en toto in cassette C1. Grossed by JIA. 12/05/2022 8:35 AM [facility] Interpretation FINAL DIAGNOSIS Peripheral blood, bone marrow aspirate and biopsy, iliac crest: 1. ??Normocellular bone marrow with trilineage hematopoiesis, erythroid predominance, left shifted granulopoiesis and no increase in blasts. 2. ??No morphologic or immunophenotypic features of involvement by acute leukemia (MRD-negative by flow cytometry). MICROSCOPIC DESCRIPTION Peripheral Blood:MCBC - ??11/29/2022 9:13:00 AM HGB 9.1 g/dL; RBC 2.56 x10(12)/L; MCV 106.6 fL; RDW 19.9 %; WBC 1.1 x10(9)/L; PLT 186 x10(9)/L Cell ? % of Total Cells ? NEUTROPHILS ? 6 ? LYMPHOCYTES ? 90 ? MONOCYTES ? 4 ? EOSINOPHILS ? 0 ? BASOPHILS ? 0 ? METAMYELOCYTES ? 0 ? MYELOCYTES ? 0 ? PROMYELOCYTES ? 0 ? BLASTS ? 0 ? OTHER CELLS ? 0 ? NRBC ? 0 ? Total Cells: 50 ? Peripheral Smear: No cytologic abnormalities. Bone Marrow Aspirate/Touch Imprint: Cell ? % of Total ? Cells ? NEUTROPHILS ? 2 ? METAMYELOCYTES ? 4 ? MYELOCYTES ? 13 ? PROMYELOCYTES ? 0 ? EOSINOPHILS ? 0 ? BASOPHILS ? 0 ? BLASTS ? 1 ? NORMOBLASTS ? 70 ? MONOCYTES ? 0 ? PROMONOCYTES ? 0 ? LYMPHOCYTES ? 9 ? PLASMA CELLS ? 1 ? Technical Comment : Count done on unit prep ? Total Cells: 500 ? Aspirate quality: Cellular. Biopsy quality: Adequate. M:E ratio: Decreased. Cellularity: Normal, 20%. Erythroid precursors: Increased quantity. Normal morphology. Myeloid precursors: Decreased quantity. Left-shifted morphology. Blasts not increased. Megakaryocytes: Normal quantity. Normal morphology and distribution. Lymphocytes: No morphologic abnormalities. Plasma cells: Not increased. ANCILLARY STUDIES Immunohistochemical studies, bone marrow biopsy, antibodies to CD34: ??No increase in CD34 positive blasts. Flow cytometric immunophenotyping for AML Monitoring, MRD Detection, bone marrow: No abnormal myeloid blast population is identified (MRD-negative). Blasts: ??AML MRD negative by CD4, CD7, CD13, CD14, CD15, CD16, CD19, CD33, CD34, CD36, CD38, CD45, CD56, CD64, CD71, CD117, CD123, CD371 and HLA-DR expression. Both flow cytometry and immunohistochemistry (IHC) have been performed in the current case because they are medically necessary to arrive at the correct diagnosis. Several antigens analyzed by flow cytometry have also been evaluated by IHC on the paraffin-embedded tissue sections in order to interpret such immunophenotypic data in the context of cellular distribution and tissue architecture. Cytogenetic analysis, bone marrow aspirate: Sample has been forwarded for testing and results will be reported in an addendum. Molecular analysis for IDH1/IDH2, bone marrow aspirate: Sample has been forwarded for testing. ??Results will be reported in an addendum. 12/05/2022 8:[address] [facility] 11/29/2022 6:15 AM CDT 11/29/2022 6:15 AM CDT Scott Alcazar M.D. 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) Leukemia Cutis Not Having Achieved Remission (HCC) documented in this encounter Administered Medications Inactive Administered Medications - up to 3 most recent administrations Medication Order MAR Action Action Date Dose Rate Site Lactated Ringer's 20 mL/hr, intravenous, Continuous, Starting on Henny 11/29/22 at 1030, Pre-Op Restarted 11/29/2022 10:18 AM CDT Rate/Dose Verify 11/29/2022 10:17 AM CDT 20 mL/ hr New Bag 11/29/2022 10:15 AM CDT 20 mL/hr 20 mL/hr documented in this encounter Additional Health Concerns Infection Onset Date Last Indicated Resolved Time Protective Environment 10/24/2022 10/24/2022 documented as of this encounter Care Teams Build And Deployment Engineer Relationship Specialty Start Date End Date Elsewhere, Pcp PCP - General Internal Medicine 10/19/22 documented as of this encounter
--- OUTSIDE RECORDS SUMMARY | 2023-04-17 13:59 | XMS_ITS | Encounter Summary ---
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 [address] [place] [phone] [facility] Referral ID Status Reason Start Date Expiration Date Visits Re quested Visits Authorized [id number] Closed 11/22/2022 11/22/2023 1 1 Encounter Details Date Type Department Care Team (Late st Contact Info) Description 11/22/2022 Orders Only Division of Hematology in [place], [place] [address] [place] [phone] Natty Lopez M.D. [address] [place] [phone] Acute Myeloblastic Leukemia Not Having Achieved Remission [...] as of this encounter Miscellaneous Notes * Addendum Note - Natty Lopez M.D. - 11/22/2022 11:30 AM CDTAddended by: NATTY LOPEZ on: 11/22/2022 02:28 PM Modules accepted: Orders documented in this encounter Plan of Treatment Not on file documented as of this encounter Results * OK DX BONE MARROW BX & ASPIR (11/29/2022 10:15 AM CDT) Bone Marrow Narrative [facility] - 11/29/2022 10:15 AM CDT Kanika Trujillo R.N. ? 11/29/2022 10:29 AM Biopsy Bone Marrow, Sedated Performed by: Kanika Trujillo R.N. Authorized by: Scott Alcazar M.D. ?? Care team members present 1. Kanika Trujillo R.N. 2. Otto Jacinto 3. Leta Julian, FIRE CHIEF'S AIDE, DAY CARE AIDE PROCEDURE DETAILS Procedure: ??Bone Marrow biopsy and [...] 1% Lidocaine IM given Pressure dressing applied [id number] given to patient Scott Alcazar M.D. PROCEDURE/MINOR SURG ICAL ORDERABLES [facility]AL NA * (ABNORMAL) CBC with Differential, Blood (11/29/2022 9:13 AM CDT) Hemoglobin 9.1(L) 11.6 - 15.0 g/dL 11/29/2022 9:33 AM CDT DTL Hematocrit 27.3(L) 35.5 - 44.9 % 11/29/2022 9:33 AM CDT DTL Erythrocytes 2.56(L) 3.92 - 5.13 x10(12)/L 11/29/2022 9:33 AM CDT DTL MCV 106.6(H) 78.2 - 97.9 fL 11/29/2022 9:33 AM CDT DTL RBC Distrib Width 19.9(H) 12.2 - 16.1 % 11/29/2022 9:33 AM CDT DTL Platelet Count 186 157 - 371 x10(9)/L 11/29/2022 9:33 AM CDT DTL Leukocytes 1.1(L) 3.4 - 9.6 x10(9)/L 11/29/2022 9:33 AM CDT DTL Neutrophils 0.09(CL) 1.56 - 6.45 x10(9)/L 11/29/2022 11:37 AM CDT PM Comment:Rechecked Lymphocytes 1.01 0.95 - 3.07 x10(9)/L 11/29/2022 11:37 AM CDT DTL Monocytes <0.03(L) 0.26 - 0.81 x10(9)/L 11/29/2022 11:37 AM CDT DTL Eosinophils <0.03 0.03 - 0.48 x10(9)/L 11/29/2022 11:37 AM CDT DTL Basophils <0.03 0.01 - 0.08 x10(9)/L 11/29/2022 11:37 AM CDT DTL Blood (Blood, Venous) 11/29/2022 9:13 AM CDT 11/29/2022 9:22 AM CDT Natty Lopez M.D. 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
--- OUTSIDE RECORDS SUMMARY | 2023-04-17 13:59 | XMS_ITS | Encounter Summary ---
Author Name Unknown Organization [facility] Address [address] [place] [address] Care Team Providers Care Electronic Warfare Officer Name Role Phone Elsewhere, Pcp Primary Care Provider Unavailabl e Reason for Referral * Outpatient (Routine) - Closed Specialty Diagnoses / Procedures Referred By Diamond delacruz Referred To Contact Hematology Oncology Scott Alcazar M.D. [address] [place] [phone] [facility] Referral ID Status Reason Start Date Expiration Date Visits Re quested Visits Authorized [id number] Closed 12/04/2022 12/03/2025 1 1 Reason for Visit * Appointment Request (Routine) - Pending Review Specialty Diagnoses / Procedures Referred By Diamond delacruz Referred To Contact Hematology Referral ID Status Reason Start Date Expiration Date V isits Requested Visits Authorized [id number] Pending Review 11/22/2022 11/22/2023 1 1 Encounter Details Date Type Department Care Team (Latest Contact Info) Description 12/04/2022 11:00 AM CDT Virtual Visit Division of Hematology in [place], [place] [address] [place] [phone] Scott Alcazar M.D. [address] [place] [phone] Acute Myeloblastic Leukemia Not Having Achieved Remission [...] your living situation today? [facility] a [facility] 11/29/2022 Sex and Gender Information Value Date Recorded Sex Assigned at Not on file Gender Identity Not on file Sexual Orientation Not on file documented as of this encounter Progress Notes * Scott Alcazar M.D. - 12/04/2022 11:00 AM CDT This visit was requested by the patient due to AML. I mentioned to the patient that there may be a charge for this visit. The patient consented to continue. I spent a total of 12 minutes with the patient. Referring Provider Dr Villa Oncology Dr Romero breast cancer surgeon CHIEF COMPLAINT/REASON [...] Repeat bone marrow biopsy on November 29 is pending. She was diagnosed with breast cancer (ER/RI+; HER 2- ) limited stage and was planned to proceed with lumpectomy in October 2022. Spoke today with the patient over the phone, daughter was present. Feels tired, denies any new complaints. 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 However her ANC is still low. Once we get the results of the bone marrow biopsy will decide about using G-CSF to expedite neutrophil recovery. Once her neutrophils are above 500 we will discuss with her local oncologist to contact her surgeon to plan her breast cancer surgery. After she recovers from that surgery will need to resume her therapy. I would like to have a follow-up phone visit in a week to go over results of the bone marrow biopsy. I told her that the blast percentage will be out 1st but then the genetic markers will take coupleweeks to be back. Once I have the bone marrow results I will contact Dr. Villa. She will need to have weekly CBC with differential to follow-up on her transfusion needs and her ANC. Plan: Treatment: Pending counts recovery and breast surgery Goals: Remission Labs: CBC with diff at least weekly Transfusion: Hemoglobin above 7 Return: 1 week phone visit Education We discussed the diagnosis and treatment plan in detail. The patient expressed understanding of thecontent. No apparent learning barriers were identified; learning preferences include listening. Signed by: Scott Alcazar M.D. 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
--- OUTSIDE RECORDS SUMMARY | 2023-04-17 13:59 | XMS_ITS | Encounter Summary ---
Author Name Unknown Organization [facility] Address [address] [place] [address] Care Team Providers Care Vulnerability Assessment Analyst Name Role Phone Elsewhere, Pcp Primary Care Provider Unavailabl e Encounter Details Date Type Department Care Team (Late st Contact Info) Description 11/29/2022 8:30 AM CDT Lab Department of Infusion Therapy in [place], [place] [address] [place] [phone] Natty Howe M.D. [address] [place] [address] Acute Myeloblastic Leukemia Not Having Achieved Remission [...] your living situation today? 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 Comment:Rechecked Lymphocytes 1.01 0.95 - 3.07 x10(9)/L 11/29/2022 11:37 AM CDT DTL Monocytes <0.03(L) 0.26 - 0.81 x10(9)/L 11/29/2022 11:37 AM CDT DTL Eosinophils <0.03 0.03 - 0.48 x10(9)/L 11/29/2022 11:37 AM CDT DTL Basophils <0.03 0.01 - 0.08 x10(9)/L 11/29/2022 11:37 AM CDT DTL Blood (Blood, Venous) 11/29/2022 9:13 AM CDT 11/29/2022 9:22 AM CDT Natty Howe M.D. 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 Flush every 7 days to each lumen. Given 11/29/2022 9:14 AM CDT 20 mL documented in this encounter Additional Health Concerns Infection Onset Date Last Indicated Resolved Time Protective Environment 10/24/2022 10/24/2022 documented as of this encounter Care Teams Vulnerability Assessment Analyst Relationship Specialty Start Date End Date Elsewhere, Pcp PCP - General Internal Medicine 10/19/22 documented as of this encounter
--- OUTSIDE RECORDS SUMMARY | 2023-04-17 13:59 | XMS_ITS | Encounter Summary ---
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 [address] [place] [phone] [facility] Referral ID Status Reason Start Date Expiration Date Visits Re quested Visits Authorized [id number] Closed 11/22/2022 11/22/2023 1 1 Encounter Details Date Type Department Care Team (Late st Contact Info) Description 11/22/2022 Orders Only [facility], [facility], [facility], Lobby Level [address] [place] [phone] Catherine Bro APRN, C.N.P., D.N.P. 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
== END 2023-04-17 13:39 | disposition home or self-care (01) ==
LOC: FRMREF 13:40
PROVIDERS: PCP Family Medicine; Visit Provider Surgery
DX: T81.49XA Infection following a procedure, other surgical site, initial encounter (principal)
CPT/HCPCS: 87070

== ENCOUNTER 2023-11-11 09:01 | Outpatient (CLI) | payer MEDICARE, SELFPAY ==
--- OUTSIDE RECORDS SUMMARY | 2023-11-11 09:03 | XMS_ITS | Clinical Summary ---
Author Organization [facility] Address [address] [place] [address] Care Team Providers Care Digital Pre Press Operator Name Role Phone Elsewhere, Pcp Primary Care Provider Unavailabl e Source Comments Patient records contain information from all sites at [facility]. For routine questions regarding patient records, call [phone] during business hours, M-F 8:00 AM - 5:00 PM Central Time. Record requests for emergency care only can be directed to [phone] at any time.[facility] Allergies No known active allergies Medications Medication Sig Dispensed Refills Start Date End Date Status famotidine (PEPCID) 20 mg tablet Take 20 mg by mouth as needed for heartburn. Active acyclovir (ZOVIRAX) 400 mg tablet Take 1 tablet (400 mg total) by mouth 2 (two) times a day. 60 tablet 10/23/2022 Active calcium carbonate-vitamin D3 500 mg-3.125 mcg (125 unit) per tablet Take 1 tablet by mouth daily. Active fluconazole (Diflucan) 200 mg tablet Take 2 tablets (400 mg total) by mouth daily. 60 tablet 11/22/2022 Active levoFLOXacin (LEVAQUIN) 500 mg tabletIndications:Pr ophylaxis, medical Take 1 tablet (500 mg total) by mouth daily Indications: Prophylaxis, medical. 30 tablet 11/23/2022 Active melatonin 5 mg tablet Take 1 tablet (5 mg total) by mouth at bedtime as needed (sleep). 0 11/22/2022 Active zrjehvmzsvbs-wphj-UQ -Ca-minerals (THERAPEUTIC-M) 400 mcg (folic acid) per tablet Take 1 tablet by mouth daily. 11/23/2022 Active polyethylene glycol (MIRALAX) 17 gram powder packet Take 1 packet (17 g total) by mouth daily. Dissolve each 17 g dose in 240 mLs (8 ounces) of beverage. 11/23/2022 Active prochlorperazine (COMPAZINE) 10 mg tablet Take 1 tablet (10 mg total) by mouth every 6 (six) hours as needed for nausea or vomiting. 30 tablet 11/22/2022 Active sennosides-docusate sodium (SENOKOT-S) 8.6-50 mg per tablet Take 1 tablet by mouth 2 (two) times a day as needed for constipation. 100 tablet 11/22/2022 Active Active Problems Problem Noted Date [...] your living situation today? I have a [facility] place to live 11/29/2022 Sex and [...] of 2 - PCV) 1946 COVID-19 Vaccine (5 - season) 2022 08/25/2021, 02/21/2021, 06/17/2020, Additional history exists Office Visit for Blood Pressure Check / Re-check 02/28/2023 11/29/2022 Depression Screening (Annual PHQ-2) 04/01/2023 Fall Risk Screen (Annual) 04/01/2023 Influenza Vaccine (#1) 2023 DTaP,Tdap,and Td Vaccines (2 - Td or Tdap) 07/30/2026 07/30/2016 Zoster Vaccines Completed 03/01/2022, 11/09/2021 HPV Vaccines Aged Out No longer eligi ble based on patient's age to complete this topic Medical Devices Implanted Type Area Under Seal Operator Device Identifier Shelf Expiration Date Model [...] Advance Directives For more information, please contact: [phone] Documents on File Type Date Recorded Patient Credit Card Associate Expl anation Advance Directives 11/06/2022 7:57 AM Precious Loyd HCP OA/ADVOCATE/AGENT/REPRE SENTATIVE/SURROGATE * Full Code (Latest Code Status on File) Date Activated Date Inactivated Comments 10/29/2022 8:52 PM 11/22/2022 7:50 PM Question Answer Comments Full Code: Discussed Healthcare Agents on File Name Relationship Healthcare Agent Relationship Communication Precious Loyd Daughter Health Care Agent Care Teams Digital Pre Press Operator Relationship Specialty Start Date End Date Elsewhere, Pcp PCP - General Internal Medicine 10/19/22
--- OUTSIDE RECORDS SUMMARY | 2023-11-11 09:04 | XMS_ITS ---
Author Organization [facility] Address [address] [place] [address] Care Team Providers Care Coupling Machine Operator Name Role Phone Elsewhere, Pcp [...] Decitabine* Plan Start Date:10/23/2022 Plan Provider:Elina Hunt P.A.-C. 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 Radiation Treatments * No radiation treatments are documented for this patient in [facility]. Treatments may have been administered in another system. 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
--- OUTSIDE RECORDS SUMMARY | 2023-11-11 09:04 | XMS_ITS | Referral Summary ---
Author Organization [facility] Address [address] [place] [address] Care Team Providers Care Lining Maker Hand Name Role Phone Elsewhere, Pcp Primary Care Provider Unavailabl e Source Comments Patient records contain information from all sites at [facility]. For routine questions regarding patient records, call [phone] during business hours, M-F 8:00 AM - 5:00 PM Central Time. Record requests for emergency care only can be directed to [phone] at any time.[facility] Allergies No known active allergies Medications [...] bedtime as needed (sleep). 0 11/22/2022 Active xcgscpumddug-nwby-RJ -Ca-minerals (THERAPEUTIC-M) 400 mcg (folic acid) per [...] your living situation today? I have a [facility] place to live 11/29/2022 Sex and [...] on file Medical Devices Implanted Type Area Personal Lines Insurance Advisor Device Identifier Shelf Expiration Date Model / [...] Advance Directives For more information, please contact: [phone] Documents on File Type Date Recorded Patient Public Space Attendant Expl anation Advance Directives 11/06/2022 7:57 AM Precious Loyd HCP OA/ADVOCATE/AGENT/REPRE SENTATIVE/SURROGATE * Full Code (Latest Code Status on File) Date Activated Date Inactivated Comments 10/29/2022 8:52 PM 11/22/2022 7:50 PM Question Answer Comments Full Code: Discussed Healthcare Agents on File Name Relationship Healthcare Agent Relationship Communication Precious Loyd Daughter Health Care Agent Care Teams Lining Maker Hand Relationship Specialty Start Date End Date Elsewhere, Pcp PCP - General Internal Medicine 10/19/22
--- OUTSIDE RECORDS SUMMARY | 2023-11-11 09:04 | XMS_ITS ---
Author Organization [facility] Address [address] [place] [address] Care Team Providers Care Commercial Lines Insurance Agent Name Role Phone Unavailable Unavailable Unavailable Surgery Details Not on file Complications Check Surgery Details section. Procedure Estimated Blood Loss Check Surgery Details section. Procedure Findings Check Surgery Details section. Procedure Specimens Taken Check Surgery Details section.
--- NOTE | 2023-11-11 09:15 | CRLHL7_ITS ---
For Patients: As a result of the Century Cures Act, medical imaging exams and procedure reports are released immediately into your electronic medical record. You may view this report before your referring provider. If you have questions, please contact your health care provider. BILATERAL SCREENING MAMMOGRAM WITH COMPUTER-AIDED DETECTION AND TOMOSYNTHESIS TECHNIQUE: CC and MLO views were obtained. These mammographic images have been obtained using full-field digital technique. These mammographic images were interpreted with the benefit of computer-aided detection. Breast Tomosynthesis was used in this interpretation. COMPARISON FILM: 09/12/22, 09/06/22, 04/12/21. FINDINGS: There are scattered areas of fibroglandular density. IMPRESSION: There is no radiographic evidence for malignancy. ASSESSMENT: BI-RADS Category 2: Benign RECOMMENDATION: Routine screening mammogram in 1 year. A lay language report of this examination will be provided to the patient. Kwame Cheng M.D. Diagnostic Radiologist [email or web address] SP/Dictated by: Kwame Cheng MD @ 11/11/2023 10:20:00 AM (Electronically Signed)
== END 2023-11-11 09:02 | disposition home or self-care (01) ==
LOC: MAMMO 09:02
PROVIDERS: PCP Family Medicine; Visit Provider Family Medicine
DX: Z12.31 Encounter for screening mammogram for malignant neoplasm of breast (principal)
CPT/HCPCS: 77063; 77067

== ENCOUNTER 2024-03-11 13:01 | Emergency (ER) | payer MEDICARE, SELFPAY ==
[2024-03-11 13:05] VITALS: BP 143/98; PULSE 72; RESP 14; TEMP 36.6; O2SAT 99; BMI 29.1
--- NOTE | 2024-03-11 13:27 | ED.GENADULT ---
HPI - General Adult General Chief complaint: Animal Bite Stated complaint: stray cat bite Time Seen by Provider: 03/11/24 13:23 History of Present Illness HPI narrative: Bit last NOC around 2300 hours [place] Lower LEFT leg, two small puncture mckay noted. Denies hx of rabies vaccine. Pt had a chemo tx this AM and was advised to be seen. 83-year-old woman presenting to the emergency department following a cat bite [place]. This cat does tend to stick around and is currently in her garage. Sounds like it would not be vaccinated but has not been behaving unusually otherwise. Friendly cat historically and tries to get into her house. Did spend a good deal of time copiously cleaning her wound. Using I believe some combination of alcohol and hydrogen peroxide as well. Currently receiving chemotherapy for breast cancer. Was advised to be evaluated. Is not having fever or excessive pain or persistent bleeding Related Data Home Medications ?Medication ?Instructions ?Recorded ?Confirmed acyclovir 400 mg tablet 400 mg PO BID 11/27/22 03/11/24 calcium 500 mg (as 1 tab PO QDAY 11/27/22 03/11/24 carbonate)-vitamin D3 3.125 mcg (125 unit) tablet levofloxacin 500 mg tablet 500 mg PO DAILY 11/27/22 03/11/24 venetoclax 100 mg tablet 200 mg PO QDAY 11/27/22 03/11/24 (Venclexta) letrozole 2.5 mg tablet 2.5 mg PO DAILY 12/10/22 03/11/24 Previous Rx's ?Medication ?Instructions ?Recorded diclofenac sodium 1 % topical gel 4 g topical QID PRN pain #100 grams 08/09/23 (Arthritis Pain (diclofenac)) Allergies Allergy/AdvReac Type Severity Reaction Status Date / Time No Known Drug Allergies Allergy Verified 03/11/24 13:10 Review of Systems Status of ROS: Reports: 6 or more systems reviewed and unremarkable except as noted in History and below [facility] Medical History 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, 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 remission (ICD-10) Pre-procedure lab exam ?Z01.812 - Encounter for preprocedural laboratory examination (ICD-10) Health care directive on file (03/21/05) ?Z78.9 - Other specified health status (ICD-10) Cellulitis of lower leg ?L03.119 - Cellulitis of unspecified part of limb (ICD-10) CVA (cerebral vascular accident) ?I63.9 - Cerebral infarction, unspecified (ICD-10) Allergic reaction ?T78.40XA - Allergy, unspecified, initial encounter (ICD-10) Surgical History S/P lumpectomy of breast ?Z98.890 - Other specified postprocedural states (ICD-10) S/P carotid endarterectomy ?Z98.890 - Other specified postprocedural states (ICD-10) Family History Other Ovarian cancer Social History Narrative: She does not smoke or drink alcohol. She lives independently Health Care Directive completed on 03/21/05. Reviewed for scanning to medical record on 06/09/19 Smoking Status: Never smoker Do you use any of these nicotine containing products: None How often do you have a drink containing alcohol: never AUDIT-C Alcohol total score: 0 Non-prescribed substance use: denies use Caffeine: No Exam Narrative: Exam Narrative: Appears well. NAD. Breathing easily. Examination of the wound in question shows to small puncture wounds on the back of the left lower leg. Minimal inflammatory change surrounding. No remarkable swelling. Const: Vital Signs, click to edit/add: Vital Signs - 24 hr 03/11/24 13:05 Temperature 97.9 F Pulse Rate [Pulse Oximeter] 72 Respiratory Rate 14 Blood Pressure [Ri ght Upper Arm] 143/98 H Pulse Oximetry 99 Oxygen Delivery Me thod Room Air Documenting provider has reviewed patient's vital signs: yes Course Vital Signs Vital signs: Initial Vital Signs Temperature 97.9 F 03/11/24 13:05 Temperature Source Temporal Artery Scan 03/11/24 13:05 Pulse Rate 72 03/11/24 13:05 Respiratory Rate 14 03/11/24 13:05 Blood Pressure 143/98 H 03/11/24 13:05 Blood Pressure Mean 113 H 03/11/24 13:05 Blood Pressure Position Sitting 03/11/24 13:05 Pulse Oximetry 99 03/11/24 13:05 Oxygen Delivery Method Room Air 03/11/24 13:05 Vital Signs Temperature 97.9 F 03/11/24 13:05 Pulse Rate 72 03/11/24 13:05 Respiratory Rate 14 03/11/24 13:05 Blood Pressure 143/98 H 03/11/24 13:05 Pulse Oximetry 99 03/11/24 13:05 Oxygen Delivery Method Room Air 03/11/24 13:05 Temperature 97.9 F 03/11/24 13:05 Pulse Rate 72 03/11/24 13:05 Respiratory Rate 14 03/11/24 13:05 Blood Pressure 143/98 H 03/11/24 13:05 Pulse Oximetry 99 03/11/24 13:05 Oxygen Delivery Method Room Air 03/11/24 13:05 Medical Decision Making MDM Narrative Medical decision making narrative: Given location I think it is less necessary to prophylax with antibiotics. She did a good job of cleaning it appears. I would monitor however for spreading infection. As far as the cat, since she has the cat in her possession can monitor for symptoms of rabies. Given information as far as what to watch for. I would not initiate rabies prophylaxis at this time. However if cat vanishes would consider treatment. See patient discharge plan for further discussion Regarding your bite -- would watch for spreading redness after 2 days, increasing pain or swelling as well, purulent drainage. I would not add to the antibiotics you are already taking. Since the cat is available to you, recommendations would be to watch it for unusual behavior over the next 10 days. See handout for some symptoms you might be looking for in this cat. If appears to be behaving in a concerning manner or dies, would contact your cab driver and/or [facility] for confirmation of rabies. Medical Records Medical records reviewed: Yes I reviewed the patient's medical records Discharge Plan Discharge Clinical Impression: Cat bite Patient Disposition: Home, Self-Care Condition: Stable Additional Instructions: Regarding your bite -- would watch for spreading redness after 2 days, increasing pain or swelling as well, purulent drainage. I would not add to the antibiotics you are already taking. Since the cat is available to you, recommendations would be to watch it for unusual behavior over the next 10 days. See handout for some symptoms you might be looking for in this cat. If appears to be behaving in a concerning manner or dies, would contact your cab driver and/or [facility] for confirmation of rabies. Prescriptions: No Action levofloxacin 500 mg tablet 500 mg PO DAILY acyclovir 400 mg tablet 400 mg PO BID Venclexta 100 mg tablet 200 mg PO QDAY Patient Comments: for 28 days calcium carbonate-vitamin D3 500 mg-3.125 mcg (125 unit) tablet 1 tab PO QDAY letrozole 2.5 mg tablet 2.5 mg PO DAILY diclofenac sodium [Arthritis Pain (diclofenac)] 1 % gel 4 g topical QID PRN (Reason: pain) Qty: 100 0RF Rx Instructions: apply to single knee, ankle, foot; for foot includes sole/toes/top of foot Follow Up/Referrals: Jeffrey Dempsey MD [Primary Care Provider] - Stand Alone Forms: [facility] Info Instructions
== END 2024-03-11 14:22 | disposition home or self-care (01) ==
LOC: ED 14:14
PROVIDERS: Emergency Provider Family Medicine; PCP Family Medicine
DX: S81.832A Puncture wound without foreign body, left lower leg, initial encounter (principal); W55.01XA Bitten by cat, initial encounter
CPT/HCPCS: 99283; 99284

== ENCOUNTER 2024-04-10 09:56 | Outpatient (CLI) | payer MEDICARE, SELFPAY | END 2024-04-10 09:57 | disposition home or self-care (01) | PROVIDERS: PCP Family Medicine; Visit Provider Family Medicine | DX: R53.83 Other fatigue (principal); E78.2 Mixed hyperlipidemia | CPT/HCPCS: 80053; 80061; 82306; 84443 ==

== ENCOUNTER 2024-07-09 13:03 | Outpatient (CLI) | payer MEDICARE, SELFPAY ==
--- NOTE | 2024-07-09 13:30 | CRLHL7_ITS ---
For Patients: As a result of the Century Cures Act, medical imaging exams and procedure reports are released immediately into your electronic medical record. You may view this report before your referring provider. If you have questions, please contact your health care provider. XR DXA Bone Mineral Density (BMD) Current height (in): 66.0. Weight (lb): 180.0. Menopause age: 51. Ethnicity: White. 1. Have you had a previous hip or vertebral fracture? No. 2. Have you had any fractures during your adult life which did not result from significant trauma (e.g., auto accident)? No. 3. Did either of your parents have a hip fracture? Yes. 4. Do you smoke? No. 5. Have you ever taken Glucocorticoids? No. 6. Do you have rheumatoid arthritis? No. 7. Do you have secondary osteoporosis? No. 8. Do you drink 3 or more alcoholic drinks per day? No. 9. Are you being treated for osteoporosis? No. 10. Have you ever taken any of the following medications: Actonel, Evista, Fosamax, Miacalcin, Reclast, Boniva, Forteo, HRT (i.e. estrogen/hormone therapy), Protelos, Prolia, Vitamin D, Calcium, other ??? please specify. ANSWER: Yes, Calcium. 11. Do you have any of the following medical conditions: Anorexia or bulimia, asthma or emphysema, end stage renal disease, hyperparathyroidism, any seizure disorders, cancer, inflammatory bowel diseases, hysterectomy, other ??? please specify. ANSWER: Yes, Cancer. 12. What was your maximum height (inches)? 67. 13. Do you perform weight bearing exercise regularly? No. 14. Do you regularly consume dairy products? Yes. 15. Do you drink caffeinated beverages? Yes. If female: 16. At what age did your period start? 13. 17. Are you premenopausal? No. 18. How many full term pregnancies have you had? 5. 19. Have you ever missed your period for more than 6 months in a row (not including or menopause)? No. TECHNIQUE: Bone mineral density study was performed using the [employer]. FINDINGS: The results of the study expressed as bone mineral density (BMD) are as follows: Lumbar spine L1 to L4: BMD: 1.008 g/cm2. T-score: -0.4. Z-score: 2.5. Neck Left: BMD: 0.716 g/cm2. T-score: -1.2 . Z-score: 1.2. Right: BMD: 0.774 g/cm2. T-score: -0.7 . Z-score: 1.8. Total Left: BMD: 0.915 g/cm2. T-score: -0.2 . Z-score:2.0. Right: BMD: 0.995 g/cm2. T-score: 0.4 . Z-score: 2.7. IMPRESSION: Osteopenia. *Comparison exams done prior to 08/2019 were performed on different unit, [facility]. COMPARISON: Compared with scan of 03/12/2019, the bone mineral density has decreased by 3.8 percent at the spine and decreased by 1.5 percent at the hip. FRAX 10-year Fracture Risk Major Osteoporotic Fracture: 21 percent Hip Fracture: 12 percent Reported Risk Factors: [place] () Neck BMD=0.716, BMI=29.1, Parental fracture Joanne Jurado M.D. Body/Diagnostic Radiologist [email or web address] JR/Dictated by: Joanne Jurado MD @ 07/10/2024 3:19:00 AM (Electronically Signed)
--- NOTE | 2024-07-09 14:00 | CRLHL7_ITS ---
For Patients: As a result of the Century Cures Act, medical imaging exams and procedure reports are released immediately into your electronic medical record. You may view this report before your referring provider. If you have questions, please contact your health care provider. CLINICAL HISTORY: Occlusion and stenosis, left endarterectomy TECHNIQUE: The carotid circulations and the vertebral arteries in the neck were examined with umanzor-scale ultrasound, color-flow and Doppler spectral analysis. Degrees of stenosis were determined using SRU 2002 Consensus Panel Criteria. COMPARISON: 12/28/2016 FINDINGS: Atherosclerotic changes are present bilaterally. There was antegrade blood flow demonstrated within the vertebral arteries. Elevated velocity within the right subclavian artery measuring 241 cm/second. The spectral Doppler tracings of the common carotid, internal and external carotid arteries demonstrate turbulence and spectral broadening within the mid and distal internal carotid arteries bilaterally along with the left external carotid artery. There was significant elevation of peak systolic blood flow within the internal carotid arteries measuring up to 170 cm/second within the right mid ICA and 151 cm/second within the left distal ICA which would indicate a hemodynamically-significant stenosis by SRU criteria. The ICA/CCA peak systolic velocity ratio measures 1.9 on the right and 1.5 on the left. IMPRESSION: 50-69 percent diameter stenosis of the mid and distal internal carotid arteries bilaterally. Dictated by Kwame Cheng MD @ 07/10/2024 7:05:11 AM (Electronically Signed)
== END 2024-07-09 13:04 | disposition home or self-care (01) ==
LOC: RAD 13:04
PROVIDERS: PCP Family Medicine; Visit Provider Family Medicine
DX: I65.23 Occlusion and stenosis of bilateral carotid arteries (principal); Z13.820 Encounter for screening for osteoporosis; M85.89 Other specified disorders of bone density and structure, multiple sites
CPT/HCPCS: 77080; 93880

== ENCOUNTER 2024-10-13 08:45 | Outpatient (CLI) | payer MEDICARE, SELFPAY | END 2024-10-13 08:46 | disposition home or self-care (01) | LOC: NFLDREF 10-15 13:34 | PROVIDERS: PCP Family Medicine; Referring Provider Family Medicine; Visit Provider Family Medicine | DX: E78.00 Pure hypercholesterolemia, unspecified (principal) | CPT/HCPCS: 80061 ==

== ENCOUNTER 2024-11-12 10:01 | Outpatient (CLI) | payer MEDICARE, SELFPAY ==
--- NOTE | 2024-11-12 10:15 | CRLHL7_ITS ---
For Patients: As a result of the Century Cures Act, medical imaging exams and procedure reports are released immediately into your electronic medical record. You may view this report before your referring provider. If you have questions, please contact your health care provider. INDICATION: BILATERAL SCREENING MAMMOGRAM, ASYMPTOMATIC 84 Y/O FEMALE COMPARISON: 11/11/2023, 09/12/2022, 09/06/2022 TECHNIQUE: Digital mammogram in CC and MLO projections including computer-aided detection (CAD) and tomosynthesis. BREAST COMPOSITION: There are scattered areas of fibroglandular density. FINDINGS: No suspicious findings. ASSESSMENT: BI-RADS 2 Benign RECOMMENDATION: Annual screening mammogram. A lay language report of this examination will be provided to the patient. Dictated by: Kwame Cheng MD @ 11/12/2024 10:52:54 (Electronically Signed)
== END 2024-11-12 10:02 | disposition home or self-care (01) ==
LOC: MAMMO 10:02
PROVIDERS: PCP Family Medicine; Visit Provider Family Medicine
DX: Z12.31 Encounter for screening mammogram for malignant neoplasm of breast (principal)
CPT/HCPCS: 77063; 77067